=== PATIENT | female | born 1960 | race Caucasian/White ===

== ENCOUNTER → 2024-06-01 16:06 | Outpatient (REF) | payer MEDICARE, SELFPAY | LOC: RAD 16:06 | PROVIDERS: ATTENDING PHYSICIAN Family Medicine; FAMILY PHYSICIAN Student in an Organized Health Care Education/Training Program | DX: R22.31 Localized swelling, mass and lump, right upper limb (principal); R22.2 Localized swelling, mass and lump, trunk | CPT/HCPCS: 71270; Q9967 ==

== ENCOUNTER → 2024-06-04 09:56 | Outpatient (REF) | payer MEDICARE, SELFPAY | LOC: HWRAD 09:56 | PROVIDERS: ATTENDING PHYSICIAN Family Medicine; FAMILY PHYSICIAN Student in an Organized Health Care Education/Training Program | DX: N95.0 Postmenopausal bleeding (principal) | CPT/HCPCS: 76830; 76856 ==

== ENCOUNTER → 2024-06-15 10:06 | Outpatient (REF) | payer MEDICARE, SELFPAY | LOC: HWWDC 10:06 | PROVIDERS: ATTENDING PHYSICIAN Family Medicine | DX: Z12.31 Encounter for screening mammogram for malignant neoplasm of breast (principal); Z78.0 Asymptomatic menopausal state | CPT/HCPCS: 77063; 77067; 77080 ==

== ENCOUNTER → 2024-10-29 10:36 | Outpatient (REF) | payer MEDICARE, SELFPAY ==
[2024-10-29 11:33] LABS: % Basophils 1.1 % (0-2); % Eosinophils 1.4 % (0-6); % Immature Granulocytes 0.4 % (0-0.5); % Lymphocytes 15.9 % (20.5-51.1); % Monocytes 9.7 % (1.7-9.3); % Neutrophils 71.5 % (42.2-75.2); Absolute Basophils 0.1 10^3/uL (0-0.2); Absolute Eosinophils 0.1 10^3/uL (0-0.7); Absolute Lymphocytes 1.2 10^3/uL (1.2-3.4); Absolute Monocytes 0.7 10^3/uL (0.1-0.6); Absolute Neutrophils 5.2 10^3/uL (1.4-6.5); Hematocrit 35.5 % (37.0-47.0); Hemoglobin 12.5 g/dL (12.0-16.0); Mean Corp Hgb Conc. 35.2 g/dL (33.0-37.0); Mean Corpuscular Hgb 31.3 pg (27.0-31.0); Mean Corpuscular Volume 88.8 fL (81.0-99.0); Mean Platelet Volume 8.8 fL (7.4-10.4); Nucleated Red Blood Cells % 0 %; Platelet Count 306 10^3/uL (130-400); Red Cell Dist. Width 11.6 % (11.5-14.5); White Blood Cell Count 7.3 10^3/uL (4.8-10.8)
[2024-10-29 13:45] LABS: Blood Urea Nitrogen 19 mg/dl (7-17); Calcium 10.5 mg/dl (8.4-10.2); Carbon Dioxide 27 mmol/L (22-30); Chloride 96 mmol/L (98-107); Glucose 92 mg/dl (70-99); Sodium 134 mmol/L (135-145); eGFR > 60.00
== END ==
LOC: REG 10:36
PROVIDERS: ATTENDING PHYSICIAN Orthopaedic Surgery Hand Surgery; FAMILY PHYSICIAN Student in an Organized Health Care Education/Training Program
DX: Z01.818 Encounter for other preprocedural examination (principal)
CPT/HCPCS: 36415; 80048; 85025; 93005

== ENCOUNTER 2025-05-31 09:29 | Inpatient (IN) | payer MEDICARE, SELFPAY ==
[2025-05-30 20:17] VITALS: BP 156/92
[2025-05-30] MEDS: TYLENOL 650 MG PO (20:27)
[2025-05-30 20:45] LABS: Hematocrit 29.9 % (37.0-47.0); Hemoglobin 10.9 g/dL (12.0-16.0); Mean Corp Hgb Conc. 36.5 g/dL (33.0-37.0); Mean Corpuscular Volume 83.8 fL (81.0-99.0); Nucleated Red Blood Cells % 0 %; Platelet Count 206 10^3/uL (130-400); Red Cell Dist. Width 11.1 % (11.5-14.5)
[2025-05-30 20:59] LABS: COVID-19 Antigen Negative (Negative)
[2025-05-30 21:01] LABS: ALT (SGPT) 29 U/L (0-35); AST (SGOT) 33 U/L (14-36); Albumin 4.6 g/dl (3.5-5.0); Alkaline Phosphatase 155 U/L (38-126); Blood Urea Nitrogen 32 mg/dl (7-17); Calcium 9.7 mg/dl (8.4-10.2); Carbon Dioxide 19 mmol/L (22-30); Chloride 101 mmol/L (98-107); Glucose 157 mg/dl (70-99); Potassium 3.8 mmol/L (3.5-5.1); Sodium 131 mmol/L (135-145); Total Protein 7.4 g/dl (6.3-8.2); eGFR 49.92
--- NOTE | 2025-05-30 23:20 | ED.GENMED ---
History of Present Illness
<Marya Rosenthal PA-C - Last Filed: 05/31/25 06:53>
General
Chief Complaint: Cold/Flu/URI Symptoms
Source: patient
Exam Limitations: none
Time Seen by Provider: 05/30/25 23:05
Nursing documentation reviewed up to this point in time: agreed with
History of Present Illness
History of Present Illness:
64-year-old female with a past medical history of mitral valve prolapse, IBS, hypertension, presents to the ER today with concerns of a week of flulike symptoms and a fever. She reports that she has had a fever daily for a week intermittently but
not getting better. The symptoms are associated with intermittent diarrhea and vomiting. She also has bodyaches and headache. She reports that the headache usually improves after fever breaks. She been taking Tylenol and Motrin for the fever.
She called EMS today because her was not able to take her to the emergency department because he had to look after her son. She reports that her started develop similar symptoms the past few days. She denies neck pain. She denies
back pain at present. She follows with a primary care provider but does not follow with a rehab care assistant. Her medications are buspirone, losartan, dicyclomine, Nexium, and a probiotic. She denies any blood in her stools or dark tarry stools.
Past History
<Marya Rosenthal PA-C - Last Filed: 05/31/25 06:53>
Past History
ED Past Medical History: Other (N/A)
ED Past Surgical History: Appendectomy and Gynecological
Social History
Tobacco: Non-smoker
Personal:
Living: with family
Employment: Not employed
Review of Systems
<Marya Rosenthal PA-C - Last Filed: 05/31/25 06:53>
Review of Systems
All Other Systems: ROS reviewed and negative except as documented in HPI and ROS
Phy Exam
<ARELI Arnold Last Filed: 05/31/25 06:53>
Physical Exam
Physical Exam:
General: Patient is well appearing and in no acute distress; non-toxic
Skin: Warm and dry, no rashes or lesions
Head: Normocephalic, atraumatic
Eyes: Sclera non-icteric. EOMs intact.
Cardiac: Regular rate and rhythm, systolic murmur noted
Peripheral Vascular: No lower extremity swelling or edema
Pulm: Normal respiratory effort, no wheezes, rales, rhonchi
Abdomen: No abdominal tenderness to palpation
Neuro: CN II-XII intact, no focal neurologic deficits. Full ROM of cervical spine. No meningismus.
Psychiatric: Appropriate mood and affect.
Sepsis
<Marya Rosenthal PA-C - Last Filed: 05/31/25 06:53>
Sepsis Screening
Sepsis Assessment: Sepsis Ruled Out
Sepsis Screen
Sepsis Screen: Sepsis Ruled Out
Date: 05/31/25
Time: 06:53
<Lilian Dickinson DO - Last Filed: 06/06/25 08:27>
Sepsis Screen
Sepsis Screen: Sepsis Ruled Out
Date: 06/06/25
Time: 08:24
<Kodak Bradshaw DO - Last Filed: 05/31/25 07:46>
Sepsis Screen
Sepsis Screen: Sepsis Ruled Out
Date: 05/31/25
Time: 07:46
Course
<Marya Rosenthal PA-C - Last Filed: 05/31/25 06:53>
Orders/Labs/Results
Orders:
Orders
05/30/25 20:26
Acetaminophen [Tylenol] 650 mg .ROUTE .STK-MED ONE
05/30/25 20:27
Acetaminophen [Tylenol] 650 mg PO NOW STA
05/30/25 20:30
COVID-19 Antigen Urgent
Source: Nasal Swab
Complete Blood Count/With Diff Urgent
Comprehensive Metabolic Panel Urgent
Ferritin Urgent
Comment: ADD ON
Folate Urgent
Comment: ADD ON
Iron Urgent
Comment: ADD ON
LDH Urgent
Comment: ADD ON
Lactic Acid Urgent
Reticulocyte Count Urgent
Comment: ADD ON
Total Iron Binding Urgent
Comment: ADD ON
Vitamin B12 Urgent
Comment: ADD ON
Blood Culture Urgent
JAREK Source: Blood/Venous
Specimen Description:
Influenza A+B Rapid Molecular Urgent
JAREK Source: Nasal Swab
Specimen Description:
05/30/25 23:18
Cardiac Monitoring- Treatment ONCE
0.9% Sodium Chloride 500 ml [Nss] 500 ml IV BOLUS
05/30/25 23:19
Urinalysis Reflex To Culture Urgent
Date Specimen was Collected: 05/31/25
Time Specimen was Collected: 00:28
CR Chest - 2 Views Urgent
Comment:
Reason For Exam: cough, fever
05/30/25 23:20
Ondansetron Injectable [Zofran] 4 mg IV NOW STA
05/31/25 00:21
Metoclopramide [Reglan] 10 mg IV NOW STA
05/31/25 00:22
Acetaminophen [Tylenol] 1,000 mg PO NOW STA
05/31/25 00:41
Urine Microscopic Reflex Cult Urgent
05/31/25 01:32
Ketorolac [Toradol] 15 mg IV NOW STA
05/31/25 01:54
Monotest Urgent
Blood Culture Urgent
JAREK Source: Blood/Venous
Specimen Description:
Respiratory Syncytial Virus Urgent
JAREK Source: Nasal Swab
Specimen Description:
Date Specimen was Collected: 05/31/25
Time Specimen was Collected: 01:45
05/31/25 05:19
Dexamethasone Sod Phosphate [Decadron] 10 mg IV NOW STA
05/31/25 06:35
Lyme PCR, DNA [S] Stat
Meningitis Panel, CSF by PCR Stat
JAREK Source: Csf
Specimen Description:
05/31/25 06:42
CSF Cell Count Urgent
Date Specimen was Collected: 05/31/25
Time Specimen was Collected: 06:40
Spinal Fluid Glucose Urgent
Date Specimen was Collected: 05/31/25
Time Specimen was Collected: 06:41
Spinal Fluid Protein Urgent
Date Specimen was Collected: 05/31/25
Time Specimen was Collected: 06:41
CSF Culture with Gram Stain Urgent
JAREK Source: CSF
Specimen Description:
Date Specimen was Collected: 05/31/25
Time Specimen was Collected: 06:41
05/31/25 07:39
CefTRIAXone [Rocephin] 2,000 mg IV NOW STA
05/31/25 07:47
INFECTIOUS DISEASE CONSULT Routine
Consulting Provider: Shantell Pak
Was physician already notified: Yes
05/31/25 08:[address] [CT Head W/o Iv Contrast] Urgent
Comment:
Reason For Exam: headache
05/31/25 08:15
Vancomycin 1 Gram/200 ml [Vancocin] 1 gram in 200 ml IV NOW
05/31/25 08:22
Sterile Water [Sterile Water For Injection] 10 ml .ROUTE .STK-MED ONE
05/31/25 08:28
Sterile Water [Sterile Water For Injection] 10 ml .ROUTE .STK-MED ONE
05/31/25 08:49
Add On - Microbiology Urgent
Tests Added?: CSF culture
05/31/25 08:54
0.9% Sodium Chloride 1000 ml [Nss] 1,000 ml IV BOLUS
05/31/25 09:00
Flush (0.9% Sodium Chloride) [Flush (Nss)] See Dose Instructions IV PER PROTOCOL
VANCOMYCIN Pharmacy to Dose [VANCOCIN Pharmacy to Dose] 1 each Pharmacy To Prepare [Call Pharmacy To Prepare] 0 ml IV PER PROTOCOL
05/31/25 09:02
Admit/Transfer Patient As Directed
Co-Sign Provider:
Level of Care: Inpatient admission
Assign to:: Medical/Surgical
Physician / Group: Trice
Diagnosis: meningitis/encephalitis
Reason for Hospitalization: meningitis/encephalitis
Expected length of stay greater than two midnights?: Yes
ELOS- Estimated Length of Stay in days: 5
I certify the patient meets the requirements for IP care: Yes
05/31/25 09:03
PRN Pain Medication Management As Directed
May give lesser potent ordered pain med per pt: Yes
preference::
Protocol:: Medication orders for pain may be administered in a
manner that supports deferring to patient preference
when the pt is:
- Requesting an ordered lesser potent pain medication.
Least to most potent pain medications are defined
as: acetaminophen < NSAID < tramadol < opioids
(morphine, oxycodone, hydromorphone).
- Requesting a lesser dose of the same medication IF
ORDERED.
- Requesting a less intrusive route of administration
if both routes are prescribed by the provider (PO <
IV).
05/31/25 09:04
Code Status As Directed
Resuscitation Status: Full Code
05/31/25 09:09
Add On- LAB Routine
Tests Added?: iron, TIBC, ferritin, B12, folate, LDH, retics
05/31/25 09:42
0.9% Sodium Chloride 1000 ml [Nss] 1,000 ml IV 80 mls/hr
Acetaminophen [Tylenol] 650 mg PO Q6HPRN PRN
Bisacodyl [Dulcolax] 10 mg RECTAL [id number] PRN
Docusate W/Senna [Senokot-S] 1 tablet PO BIDPRN PRN
Ondansetron Injectable [Zofran] 4 mg IV Q8HPRN PRN
Polyethylene Glycol Powder [Miralax] 17 grams PO DAILYPRN PRN
05/31/25 09:42
Activity As Directed
Activity Level: Out of Bed-Early Mobility
Precautions As Directed
Type of Precautions: Airborne
Vital Signs As Directed
Frequency: Per unit guidelines
DX Deep Vein Thrombosis Video Routine
05/31/25 Lunch
Regular
At Your Request: Full Participation
05/31/25 11:00
Ampicillin 2,000 mg 0.9% Sodium Chloride 100 ml [Nss] 100 ml IV Q6
05/31/25 16:00
Heparin 5,000 units SC Q8
05/31/25 20:00
Buspirone [Buspar] 15 mg PO BID
CefTRIAXone [Rocephin] 2,000 mg IV Q12H
Sterile Water [Sterile Water For Injection] 20 ml IV Q12H
06/01/25 09:13
Complete Blood Count/With Diff IN AM
Comprehensive Metabolic Panel IN AM
Blood Culture Q30M
JAREK Source: Blood/Venous
Specimen Description:
06/01/25 10:24
Blood Culture Q30M
JAREK Source: Blood/Venous
Specimen Description:
Abnormal Lab Results
05/30/25 05/31/25 05/31/25
20:30 00:41 01:54
RBC 3.57 L 10^6/uL
(4.20-5.40)
Hgb 10.9 L g/dL
(12.0-16.0)
Hct 29.9 L %
(37.0-47.0)
RDW 11.1 L %
(11.5-14.5)
Absolute Neuts (auto) 8.1 H 10^3/uL
(1.4-6.5)
Absolute Lymphs (auto) 0.6 L 10^3/uL
(1.2-3.4)
Neutrophils % 86.6 H %
(42.2-75.2)
Lymphocytes % 6.0 L %
(20.5-51.1)
Sodium 131 L mmol/L
(135-145)
Carbon Dioxide 19 L mmol/L
(22-30)
BUN 32 H mg/dl
(7-17)
Creatinine 1.2 H mg/dL
(0.6-1.0)
Glucose 157 H mg/dl
(70-99)
Lactic Acid 0.6 L mmol/L
(0.7-2.0)
Iron 26 L ug/dl
(37-170)
% Saturation 8 L %
(20-50)
Alkaline Phosphatase 155 H U/L
(38-126)
Lactate Dehydrogenase 270 H U/L
(120-246)
Urine Ketones 2+ A
(Negative)
Ur Occult Blood Reflex 1+ A
(Negative)
Urine Bacteria (Reflex) Few A
(Negative)
Urine Albumin (Reflex) 1+ A
(Neg - Trace)
CSF WBC
CSF Total Protein
Monoscreen Positive A
(Negative)
05/31/25
06:42
RBC
Hgb
Hct
RDW
Absolute Neuts (auto)
Absolute Lymphs (auto)
Neutrophils %
Lymphocytes %
Sodium
Carbon Dioxide
BUN
Creatinine
Glucose
Lactic Acid
Iron
% Saturation
Alkaline Phosphatase
Lactate Dehydrogenase
Urine Ketones
Ur Occult Blood Reflex
Urine Bacteria (Reflex)
Urine Albumin (Reflex)
CSF WBC 6854 H* mm^3
(0-5)
CSF Total Protein > 600 H mg/dl
(12-60)
Monoscreen
05/30/25 20:30
05/30/25 20:30
Vital Signs
Initial and Last Documented VS:
Initial Vital Signs
Temp Pulse Resp BP Pulse Ox
102.6 F H 123 16 156/92 95
05/30/25 20:17 05/30/25 20:17 05/30/25 20:17 05/30/25 20:17 05/30/25 20:17
Last Documented Vital Signs
Temp Pulse Resp BP Pulse Ox
98.6 F 82 12 141/82 99
06/06/25 08:08 06/06/25 08:08 06/06/25 08:08 06/06/25 08:08 06/06/25 08:08
<Lilian Dickinson, DO - Last Filed: 06/06/25 08:27>
Orders/Labs/Results
Orders:
Orders
05/30/25 20:26
Acetaminophen [Tylenol] 650 mg .ROUTE .STK-MED ONE
05/30/25 20:27
Acetaminophen [Tylenol] 650 mg PO NOW STA
05/30/25 20:30
COVID-19 Antigen Urgent
Source: Nasal Swab
Complete Blood Count/With Diff Urgent
Comprehensive Metabolic Panel Urgent
Ferritin Urgent
Comment: ADD ON
Folate Urgent
Comment: ADD ON
Iron Urgent
Comment: ADD ON
LDH Urgent
Comment: ADD ON
Lactic Acid Urgent
Reticulocyte Count Urgent
Comment: ADD ON
Total Iron Binding Urgent
Comment: ADD ON
Vitamin B12 Urgent
Comment: ADD ON
Blood Culture Urgent
JAREK Source: Blood/Venous
Specimen Description:
Influenza A+B Rapid Molecular Urgent
AJREK Source: Nasal Swab
Specimen Description:
05/30/25 23:18
Cardiac Monitoring- Treatment ONCE
0.9% Sodium Chloride 500 ml [Nss] 500 ml IV BOLUS
05/30/25 23:19
Urinalysis Reflex To Culture Urgent
Date Specimen was Collected: 05/31/25
Time Specimen was Collected: 00:28
CR Chest - 2 Views Urgent
Comment:
Reason For Exam: cough, fever
05/30/25 23:20
Ondansetron Injectable [Zofran] 4 mg IV NOW STA
05/31/25 00:21
Metoclopramide [Reglan] 10 mg IV NOW STA
05/31/25 00:22
Acetaminophen [Tylenol] 1,000 mg PO NOW STA
05/31/25 00:41
Urine Microscopic Reflex Cult Urgent
05/31/25 01:32
Ketorolac [Toradol] 15 mg IV NOW STA
05/31/25 01:54
Monotest Urgent
Blood Culture Urgent
JAREK Source: Blood/Venous
Specimen Description:
Respiratory Syncytial Virus Urgent
JAREK Source: Nasal Swab
Specimen Description:
Date Specimen was Collected: 05/31/25
Time Specimen was Collected: 01:45
05/31/25 05:19
Dexamethasone Sod Phosphate [Decadron] 10 mg IV NOW STA
05/31/25 06:35
Lyme PCR, DNA [S] Stat
Meningitis Panel, CSF by PCR Stat
JAREK Source: Csf
Specimen Description:
05/31/25 06:42
CSF Cell Count Urgent
Date Specimen was Collected: 05/31/25
Time Specimen was Collected: 06:40
Spinal Fluid Glucose Urgent
Date Specimen was Collected: 05/31/25
Time Specimen was Collected: 06:41
Spinal Fluid Protein Urgent
Date Specimen was Collected: 05/31/25
Time Specimen was Collected: 06:41
CSF Culture with Gram Stain Urgent
JAREK Source: CSF
Specimen Description:
Date Specimen was Collected: 05/31/25
Time Specimen was Collected: 06:41
05/31/25 07:39
CefTRIAXone [Rocephin] 2,000 mg IV NOW STA
05/31/25 07:47
INFECTIOUS DISEASE CONSULT Routine
Consulting Provider: Shantell Pak
Was physician already notified: Yes
05/31/25 08:[address] [CT Head W/o Iv Contrast] Urgent
Comment:
Reason For Exam: headache
05/31/25 08:15
Vancomycin 1 Gram/200 ml [Vancocin] 1 gram in 200 ml IV NOW
05/31/25 08:22
Sterile Water [Sterile Water For Injection] 10 ml .ROUTE .STK-MED ONE
05/31/25 08:28
Sterile Water [Sterile Water For Injection] 10 ml .ROUTE .STK-MED ONE
05/31/25 08:49
Add On - Microbiology Urgent
Tests Added?: CSF culture
05/31/25 08:54
0.9% Sodium Chloride 1000 ml [Nss] 1,000 ml IV BOLUS
05/31/25 09:00
Flush (0.9% Sodium Chloride) [Flush (Nss)] See Dose Instructions IV PER PROTOCOL
VANCOMYCIN Pharmacy to Dose [VANCOCIN Pharmacy to Dose] 1 each Pharmacy To Prepare [Call Pharmacy To Prepare] 0 ml IV PER PROTOCOL
05/31/25 09:02
Admit/Transfer Patient As Directed
Co-Sign Provider:
Level of Care: Inpatient admission
Assign to:: Medical/Surgical
Physician / Group: Trice
Diagnosis: meningitis/encephalitis
Reason for Hospitalization: meningitis/encephalitis
Expected length of stay greater than two midnights?: Yes
ELOS- Estimated Length of Stay in days: 5
I certify the patient meets the requirements for IP care: Yes
05/31/25 09:03
PRN Pain Medication Management As Directed
May give lesser potent ordered pain med per pt: Yes
preference::
Protocol:: Medication orders for pain may be administered in a
manner that supports deferring to patient preference
when the pt is:
- Requesting an ordered lesser potent pain medication.
Least to most potent pain medications are defined
as: acetaminophen < NSAID < tramadol < opioids
(morphine, oxycodone, hydromorphone).
- Requesting a lesser dose of the same medication IF
ORDERED.
- Requesting a less intrusive route of administration
if both routes are prescribed by the provider (PO <
IV).
05/31/25 09:04
Code Status As Directed
Resuscitation Status: Full Code
05/31/25 09:09
Add On- LAB Routine
Tests Added?: iron, TIBC, ferritin, B12, folate, LDH, retics
05/31/25 09:42
0.9% Sodium Chloride 1000 ml [Nss] 1,000 ml IV 80 mls/hr
Acetaminophen [Tylenol] 650 mg PO Q6HPRN PRN
Bisacodyl [Dulcolax] 10 mg RECTAL [id number] PRN
Docusate W/Senna [Senokot-S] 1 tablet PO BIDPRN PRN
Ondansetron Injectable [Zofran] 4 mg IV Q8HPRN PRN
Polyethylene Glycol Powder [Miralax] 17 grams PO DAILYPRN PRN
05/31/25 09:42
Activity As Directed
Activity Level: Out of Bed-Early Mobility
Precautions As Directed
Type of Precautions: Airborne
Vital Signs As Directed
Frequency: Per unit guidelines
DX Deep Vein Thrombosis Video Routine
05/31/25 Lunch
Regular
At Your Request: Full Participation
05/31/25 11:00
Ampicillin 2,000 mg 0.9% Sodium Chloride 100 ml [Nss] 100 ml IV Q6
05/31/25 16:00
Heparin 5,000 units SC Q8
05/31/25 20:00
Buspirone [Buspar] 15 mg PO BID
CefTRIAXone [Rocephin] 2,000 mg IV Q12H
Sterile Water [Sterile Water For Injection] 20 ml IV Q12H
06/01/25 09:13
Complete Blood Count/With Diff IN AM
Comprehensive Metabolic Panel IN AM
Blood Culture Q30M
JAREK Source: Blood/Venous
Specimen Description:
06/01/25 10:24
Blood Culture Q30M
JAREK Source: Blood/Venous
Specimen Description:
Abnormal Lab Results
05/30/25 05/31/25 05/31/25
20:30 00:41 01:54
RBC 3.57 L 10^6/uL
(4.20-5.40)
Hgb 10.9 L g/dL
(12.0-16.0)
Hct 29.9 L %
(37.0-47.0)
RDW 11.1 L %
(11.5-14.5)
Absolute Neuts (auto) 8.1 H 10^3/uL
(1.4-6.5)
Absolute Lymphs (auto) 0.6 L 10^3/uL
(1.2-3.4)
Neutrophils % 86.6 H %
(42.2-75.2)
Lymphocytes % 6.0 L %
(20.5-51.1)
Sodium 131 L mmol/L
(135-145)
Carbon Dioxide 19 L mmol/L
(22-30)
BUN 32 H mg/dl
(7-17)
Creatinine 1.2 H mg/dL
(0.6-1.0)
Glucose 157 H mg/dl
(70-99)
Lactic Acid 0.6 L mmol/L
(0.7-2.0)
Iron 26 L ug/dl
(37-170)
% Saturation 8 L %
(20-50)
Alkaline Phosphatase 155 H U/L
(38-126)
Lactate Dehydrogenase 270 H U/L
(120-246)
Urine Ketones 2+ A
(Negative)
Ur Occult Blood Reflex 1+ A
(Negative)
Urine Bacteria (Reflex) Few A
(Negative)
Urine Albumin (Reflex) 1+ A
(Neg - Trace)
CSF WBC
CSF Total Protein
Monoscreen Positive A
(Negative)
05/31/25
06:42
RBC
Hgb
Hct
RDW
Absolute Neuts (auto)
Absolute Lymphs (auto)
Neutrophils %
Lymphocytes %
Sodium
Carbon Dioxide
BUN
Creatinine
Glucose
Lactic Acid
Iron
% Saturation
Alkaline Phosphatase
Lactate Dehydrogenase
Urine Ketones
Ur Occult Blood Reflex
Urine Bacteria (Reflex)
Urine Albumin (Reflex)
CSF WBC 6854 H* mm^3
(0-5)
CSF Total Protein > 600 H mg/dl
(12-60)
Monoscreen
05/30/25 20:30
05/30/25 20:30
Vital Signs
Initial and Last Documented VS:
Initial Vital Signs
Temp Pulse Resp BP Pulse Ox
102.6 F H 123 16 156/92 95
05/30/25 20:17 05/30/25 20:17 05/30/25 20:17 05/30/25 20:17 05/30/25 20:17
Last Documented Vital Signs
Temp Pulse Resp BP Pulse Ox
98.6 F 82 12 141/82 99
06/06/25 08:08 06/06/25 08:08 06/06/25 08:08 06/06/25 08:08 06/06/25 08:08
<Kodak Bradshaw, DO - Last Filed: 05/31/25 07:46>
Orders/Labs/Results
Orders:
Orders
05/30/25 20:26
Acetaminophen [Tylenol] 650 mg .ROUTE .STK-MED ONE
05/30/25 20:27
Acetaminophen [Tylenol] 650 mg PO NOW STA
05/30/25 20:30
COVID-19 Antigen Urgent
Source: Nasal Swab
Complete Blood Count/With Diff Urgent
Comprehensive Metabolic Panel Urgent
Ferritin Urgent
Comment: ADD ON
Folate Urgent
Comment: ADD ON
Iron Urgent
Comment: ADD ON
LDH Urgent
Comment: ADD ON
Lactic Acid Urgent
Reticulocyte Count Urgent
Comment: ADD ON
Total Iron Binding Urgent
Comment: ADD ON
Vitamin B12 Urgent
Comment: ADD ON
Blood Culture Urgent
JAREK Source: Blood/Venous
Specimen Description:
Influenza A+B Rapid Molecular Urgent
JAREK Source: Nasal Swab
Specimen Description:
05/30/25 23:18
Cardiac Monitoring- Treatment ONCE
0.9% Sodium Chloride 500 ml [Nss] 500 ml IV BOLUS
05/30/25 23:19
Urinalysis Reflex To Culture Urgent
Date Specimen was Collected: 05/31/25
Time Specimen was Collected: 00:28
CR Chest - 2 Views Urgent
Comment:
Reason For Exam: cough, fever
05/30/25 23:20
Ondansetron Injectable [Zofran] 4 mg IV NOW STA
05/31/25 00:21
Metoclopramide [Reglan] 10 mg IV NOW STA
05/31/25 00:22
Acetaminophen [Tylenol] 1,000 mg PO NOW STA
05/31/25 00:41
Urine Microscopic Reflex Cult Urgent
05/31/25 01:32
Ketorolac [Toradol] 15 mg IV NOW STA
05/31/25 01:54
Monotest Urgent
Blood Culture Urgent
JAREK Source: Blood/Venous
Specimen Description:
Respiratory Syncytial Virus Urgent
JAREK Source: Nasal Swab
Specimen Description:
Date Specimen was Collected: 05/31/25
Time Specimen was Collected: 01:45
05/31/25 05:19
Dexamethasone Sod Phosphate [Decadron] 10 mg IV NOW STA
05/31/25 06:35
Lyme PCR, DNA [S] Stat
Meningitis Panel, CSF by PCR Stat
JAREK Source: Csf
Specimen Description:
05/31/25 06:42
CSF Cell Count Urgent
Date Specimen was Collected: 05/31/25
Time Specimen was Collected: 06:40
Spinal Fluid Glucose Urgent
Date Specimen was Collected: 05/31/25
Time Specimen was Collected: 06:41
Spinal Fluid Protein Urgent
Date Specimen was Collected: 05/31/25
Time Specimen was Collected: 06:41
CSF Culture with Gram Stain Urgent
JAREK Source: CSF
Specimen Description:
Date Specimen was Collected: 05/31/25
Time Specimen was Collected: 06:41
05/31/25 07:39
CefTRIAXone [Rocephin] 2,000 mg IV NOW STA
05/31/25 07:47
INFECTIOUS DISEASE CONSULT Routine
Consulting Provider: Shantell Pak
Was physician already notified: Yes
05/31/25 08:[address] [CT Head W/o Iv Contrast] Urgent
Comment:
Reason For Exam: headache
05/31/25 08:15
Vancomycin 1 Gram/200 ml [Vancocin] 1 gram in 200 ml IV NOW
05/31/25 08:22
Sterile Water [Sterile Water For Injection] 10 ml .ROUTE .STK-MED ONE
05/31/25 08:28
Sterile Water [Sterile Water For Injection] 10 ml .ROUTE .STK-MED ONE
05/31/25 08:49
Add On - Microbiology Urgent
Tests Added?: CSF culture
05/31/25 08:54
0.9% Sodium Chloride 1000 ml [Nss] 1,000 ml IV BOLUS
05/31/25 09:00
Flush (0.9% Sodium Chloride) [Flush (Nss)] See Dose Instructions IV PER PROTOCOL
VANCOMYCIN Pharmacy to Dose [VANCOCIN Pharmacy to Dose] 1 each Pharmacy To Prepare [Call Pharmacy To Prepare] 0 ml IV PER PROTOCOL
05/31/25 09:02
Admit/Transfer Patient As Directed
Co-Sign Provider:
Level of Care: Inpatient admission
Assign to:: Medical/Surgical
Physician / Group: Trice
Diagnosis: meningitis/encephalitis
Reason for Hospitalization: meningitis/encephalitis
Expected length of stay greater than two midnights?: Yes
ELOS- Estimated Length of Stay in days: 5
I certify the patient meets the requirements for IP care: Yes
05/31/25 09:03
PRN Pain Medication Management As Directed
May give lesser potent ordered pain med per pt: Yes
preference::
Protocol:: Medication orders for pain may be administered in a
manner that supports deferring to patient preference
when the pt is:
- Requesting an ordered lesser potent pain medication.
Least to most potent pain medications are defined
as: acetaminophen < NSAID < tramadol < opioids
(morphine, oxycodone, hydromorphone).
- Requesting a lesser dose of the same medication IF
ORDERED.
- Requesting a less intrusive route of administration
if both routes are prescribed by the provider (PO <
IV).
05/31/25 09:04
Code Status As Directed
Resuscitation Status: Full Code
05/31/25 09:09
Add On- LAB Routine
Tests Added?: iron, TIBC, ferritin, B12, folate, LDH, retics
05/31/25 09:42
0.9% Sodium Chloride 1000 ml [Nss] 1,000 ml IV 80 mls/hr
Acetaminophen [Tylenol] 650 mg PO Q6HPRN PRN
Bisacodyl [Dulcolax] 10 mg RECTAL [id number] PRN
Docusate W/Senna [Senokot-S] 1 tablet PO BIDPRN PRN
Ondansetron Injectable [Zofran] 4 mg IV Q8HPRN PRN
Polyethylene Glycol Powder [Miralax] 17 grams PO DAILYPRN PRN
05/31/25 09:42
Activity As Directed
Activity Level: Out of Bed-Early Mobility
Precautions As Directed
Type of Precautions: Airborne
Vital Signs As Directed
Frequency: Per unit guidelines
DX Deep Vein Thrombosis Video Routine
05/31/25 Lunch
Regular
At Your Request: Full Participation
05/31/25 11:00
Ampicillin 2,000 mg 0.9% Sodium Chloride 100 ml [Nss] 100 ml IV Q6
05/31/25 16:00
Heparin 5,000 units SC Q8
05/31/25 20:00
Buspirone [Buspar] 15 mg PO BID
CefTRIAXone [Rocephin] 2,000 mg IV Q12H
Sterile Water [Sterile Water For Injection] 20 ml IV Q12H
06/01/25 09:13
Complete Blood Count/With Diff IN AM
Comprehensive Metabolic Panel IN AM
Blood Culture Q30M
JAREK Source: Blood/Venous
Specimen Description:
06/01/25 10:24
Blood Culture Q30M
JAREK Source: Blood/Venous
Specimen Description:
Abnormal Lab Results
05/30/25 05/31/25 05/31/25
20:30 00:41 01:54
RBC 3.57 L 10^6/uL
(4.20-5.40)
Hgb 10.9 L g/dL
(12.0-16.0)
Hct 29.9 L %
(37.0-47.0)
RDW 11.1 L %
(11.5-14.5)
Absolute Neuts (auto) 8.1 H 10^3/uL
(1.4-6.5)
Absolute Lymphs (auto) 0.6 L 10^3/uL
(1.2-3.4)
Neutrophils % 86.6 H %
(42.2-75.2)
Lymphocytes % 6.0 L %
(20.5-51.1)
Sodium 131 L mmol/L
(135-145)
Carbon Dioxide 19 L mmol/L
(22-30)
BUN 32 H mg/dl
(7-17)
Creatinine 1.2 H mg/dL
(0.6-1.0)
Glucose 157 H mg/dl
(70-99)
Lactic Acid 0.6 L mmol/L
(0.7-2.0)
Iron 26 L ug/dl
(37-170)
% Saturation 8 L %
(20-50)
Alkaline Phosphatase 155 H U/L
(38-126)
Lactate Dehydrogenase 270 H U/L
(120-246)
Urine Ketones 2+ A
(Negative)
Ur Occult Blood Reflex 1+ A
(Negative)
Urine Bacteria (Reflex) Few A
(Negative)
Urine Albumin (Reflex) 1+ A
(Neg - Trace)
CSF WBC
CSF Total Protein
Monoscreen Positive A
(Negative)
05/31/25
06:42
RBC
Hgb
Hct
RDW
Absolute Neuts (auto)
Absolute Lymphs (auto)
Neutrophils %
Lymphocytes %
Sodium
Carbon Dioxide
BUN
Creatinine
Glucose
Lactic Acid
Iron
% Saturation
Alkaline Phosphatase
Lactate Dehydrogenase
Urine Ketones
Ur Occult Blood Reflex
Urine Bacteria (Reflex)
Urine Albumin (Reflex)
CSF WBC 6854 H* mm^3
(0-5)
CSF Total Protein > 600 H mg/dl
(12-60)
Monoscreen
05/30/25 20:30
05/30/25 20:30
Vital Signs
Initial and Last Documented VS:
Initial Vital Signs
Temp Pulse Resp BP Pulse Ox
102.6 F H 123 16 156/92 95
05/30/25 20:17 05/30/25 20:17 05/30/25 20:17 05/30/25 20:17 05/30/25 20:17
Last Documented Vital Signs
Temp Pulse Resp BP Pulse Ox
98.6 F 82 12 141/82 99
06/06/25 08:08 06/06/25 08:08 06/06/25 08:08 06/06/25 08:08 06/06/25 08:08
Procedures
<Marya Rosenthal PA-C - Last Filed: 05/31/25 06:53>
Lumbar Puncture
Indication for procedure:: Intractable headache, fever
Procedure completed by: Marya Rosenthal PA-C
Consent form signed: Yes
If no, reason: Emergency procedure
Anesthesia/sedation: 1% Lidocaine with Epi
Preparation: cleaned with Betadine
Position: sitting
Needle Size: 18 gauge
Needle Type: Lumbar Needle
Number of attempts: 1
Dressing applied to puncture site: bandaid
Complications: none
<Marya Rosenthal PA-C - Last Filed: 05/31/25 06:53>
MDM/Problems Addressed
Differential Diagnosis Includes:
ddx include influenza, pneumonia, UTI, viral syndrome, gastroenteritis, meningitis
MDM/Problems Addressed:
64-year-old female with a past medical history of mitral valve prolapse, IBS, hypertension, presents to the ER today with concerns of a week of flulike symptoms and a fever. She reports that she has had a fever daily for a week intermittently but
not getting better. She thought she had the flu. On physical exam she appears uncomfortable secondary to headache and body aches. She feels like that at home, her headache decreased with fever control but states that recently has become more
persistent. Physical exam her lungs are clear and she has no abdominal tenderness. She has no neurologic deficit. She did test positive for mononucleosis which would explain her fever and symptoms. Initially, plan to discharge patient with
conservative management and close follow-up with PCP. Patient states that she could not get a ride home till the morning so the decision was made to observe her for multiple more hours until her could pick her up.
During this time of observation, patient complained of persistent headache with minimal improvement. She also complained of neck pain and photophobia. Decision was made to perform lumbar puncture which I performed under supervision of ED
attending. Discussed risks of procedure including infection, etc. Consent form signed. Lumbar puncture performed successfully with slightly cloudy fluid. Will hold off on antibiotics at this time. Patient referred for admission.
Chronic conditions affecting care:
Hypertension, IBS, MVP
<Marya Rosenthal PA-C - Last Filed: 05/31/25 06:53>
*Pulse Oximetry
SaO2: 95
Oxygen Mode of Delivery: Room air
Patient hypoxic: no
*Critical Care Note
Total Time (30-74mins, 75-104mins- exclusive of procedures): Not Applicable
Data Reviewed
Review of Other/Old Records Reveals: Records (Reviewed pulm note from 06/07/2024 patient seen for pulmonary nodule and had follow-up done)
Source: patient and records
<Kodak Bradshaw DO - Last Filed: 05/31/25 07:46>
*Critical Care Note
Total Time (30-74mins, 75-104mins- exclusive of procedures): 32
<Marya Rosenthal PA-C - Last Filed: 05/31/25 06:53>
Patient Management
Escalation/DeEscalation of care consider admission/obs:
Admission indicated
<Marya Rosenthal PA-C - Last Filed: 05/31/25 06:53>
Update Note
Update Note:
Reassessment, patient notes that
<Kodak Bradshaw DO - Last Filed: 05/31/25 07:46>
Update Note
Update Note:
6 AM ER attending --- patient admitted status post LP intractable headache
7:45 AM reevaluation patient feeling better she states, normal mental status CSF noted will keep in respiratory isolation, Rocephin and vancomycin ordered, infectious disease has been consulted patient updated
ED Attending Note
<Marya Rosenthal PA-C - Last Filed: 05/31/25 06:53>
-
Portions of this chart may have been created with voice recognition software.� Occasional wrong word or��sound alike� substitutions may have occurred due to the inherent limitations of voice recognition software.
<Lilian Dickinson DO - Last Filed: 06/06/25 08:27>
ED Attending Note
Patient seen and examined by attending physician: Yes
I performed the substantive portion of visit, reviewed & personally made and approve the management plan that is documented in note by myself or EARNESTINE.: Yes
I performed a history and physical exam of patient and discussed management with resident, I reviewed resident's note and agree with documented findings and plan of care.: Yes
ED Attending Note:
64-year-old female with history of hypertension presenting for fever for the past week. Also notes body aches, nausea, vomiting, headache. Denies known sick contacts. Denies any sore throat. Notes mild cough. Denies chest pain or difficulty
breathing. Denies abdominal pain. Denies any neck stiffness. Vital signs on arrival significant for fever.
On exam, patient is resting comfortably, no acute distress, nontoxic. No present signs on physical exam concerning for acute bacterial source. Patient without meningeal signs, no focal neurologic deficits, lungs clear to auscultation, abdomen soft
and nondistended/nontender. No systemic rash. Ultimately suspect viral syndrome. Labs obtained prior to my assessment, unremarkable, mild JANUSZ. COVID and flu swabs are negative. Patient administered medications for her headache and fever. Will
reassess and add Monospot given duration of symptoms.
03:00 - Patient's Monospot test is positive, which is consistent with myriad of symptoms. At this time feel stable for discharge with continued supportive therapy, with vital signs remaining stable. Patient notes that she cannot get a ride until
the morning, so will continue to keep comfortable while in the emergency department and reassess.
05:20 -on reassessment, patient had noted no improvement of her headache, remains very symptomatic despite medications. Viral meningitis/encephalitis is a consideration. For this reason, discussion had with patient regarding ultimate diagnosis
with lumbar puncture. Patient consented for procedure.
06:30 - procedure was completed without incident. Fluid slightly cloudy in appearance. Will plan for antibiotics with now present concern for bacterial source. Cultures and meningitis panel sent. At this time, plan for admission given continued
symptoms and intractable headache, abnormal appearing CSF. Decadron administered
Discharge Plan
Departure
Patient Disposition: Admit
Date of Disposition: 05/31/25
Time of Disposition: 06:22
Admit to: Med/Surg
Presentation/result/management discussed w/ accepting MD/DO: Hospitalist
Patient with high blood pressure during this ER visit?: No
Condition: Good
Covid-19: Not Applicable
Discharge Problem:
Intractable headache, Infectious mononucleosis, Meningitis, Sepsis
Interventions
Interventions:
*Risk Screen - Suicide Last Done: 05/30/25 20:19
*General Assessment Last Done: 05/30/25 23:47
*Neglect/Abuse Screening Last Done: 05/30/25 20:19
*ED COVID-19 Vaccine History Last Done: 05/30/25 23:47
*ED Influenza Vaccine History Last Done: 05/30/25 23:47
[facility] Risk Assessment Tool Last Done: 05/30/25 23:47
*Nursing Disposition Last Done: 05/31/25 13:50
ED- Pulmonary Assessment Last Done: 05/31/25 08:13
Discharge Date and Time
Discharge Date/Time: 05/31/25 13:51
[2025-05-30] MEDS: NSS 500 IV (23:40)
[2025-05-30] MEDS: ZOFRAN 4 MG IV (23:40)
[2025-05-30 23:45] VITALS: BP 134/75
[2025-05-31] VITALS (14 sets, daily range): BP systolic 106–141; BP diastolic 54–77; BMI 22.5
[2025-05-31] MEDS: TYLENOL 1000 MG PO (00:33)
[2025-05-31] MEDS: REGLAN 10 MG IV (00:34)
[2025-05-31 00:50] LABS: Urine Character Clear (Clear)
[2025-05-31 01:05] LABS: Urine Red Blood Cell 0-2 /HPF (0-2); Urine Urothelial Cell 0-2 /LPF (FEW)
[2025-05-31 01:06] LABS: Urine White Cell 0-2 /HPF (0-5)
[2025-05-31] MEDS: TORADOL 15 MG IV (01:59)
[2025-05-31] MEDS: DECADRON 10 MG IV (05:38)
[2025-05-31 07:31] LABS: CSF Color Xanthochromic
[2025-05-31 07:35] LABS: Red Cell Count/CSF 250 mm^3
[2025-05-31 07:36] LABS: White Cell Count/CSF 6854 mm^3 (0-5)
[2025-05-31 08:12] LABS: Spinal Fluid Granulocytes 89 %; Spinal Fluid Lymphocytes 7 %; Spinal Fluid Macrophages 4 %
[2025-05-31] MEDS: ROCEPHIN 2000 MG IV ×2 (08:36→19:55)
[2025-05-31] MEDS: VANCOCIN 200 IV (08:37)
--- NOTE | 2025-05-31 08:49 | CON.ID ---
Consultation
-
Date/Time Consultation Requested: May 31, 2025729
Date/Time Consultation Performed: May 31, 2025 0850
Requesting Provider: Dr. Kodak Bradshaw
Performing Provider: Dr. Shantell Pak
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
Chief Complaint / Past History
Chief Complaint
Fever and headaches
History of Present Illness
History obtained from the patient as well as from her at bedside. She is a 64-year-old female with history of migraine headaches, depression, mitral valve prolapse who presented to the ED last night due to persistent headache and fever.
Patient reports symptoms started last week on Friday or Friday with malaise, body aches, headaches, and fever. She complains of neck stiffness. Positive photophobia. No sinus congestion. No rhinorrhea. No sore throat. No cough or shortness of
breath. No chest pain. Positive intermittent nausea and diarrhea. No abdominal pain. No urine symptoms. No chest pain. No rash. She has been taking Advil for the daily fevers. She had mild improvement for 2 days but then recurred. Headaches
different from her migraine headaches. She denies ill contacts. Her and son are fine. She is retired. She is up-to-date with her pneumococcal vaccine. No tobacco history. In ED, temperature 102.6, chest x-ray negative, CSF 6854 white
blood cells, 89% polys, low glucose, protein more than 600. Meningitis panel negative. Blood culture 1 out of 2 GPC. Monospot positive. She received vancomycin and ceftriaxone. She is en route for CT of the head.
Past History
Additional Past Medical History:
Migraines
Anemia
Depression
Mitral valve prolapse
GERD
IBS
Easy bruising/bleeding disorder
Additional Past Surgical History:
Appendectomy
Uterine ablation
R shoulder arthroscopic surgery
Allergy History:
No Known Allergies Allergy (Unverified 01/10/23 13:55)
Medications Reviewed: Yes
Current Antibiotics:
Ceftriaxone 2g
Vancomycin
Dexamethasone
Social History
Tobacco: Non-Smoker
Alcohol: None
Drug: None
Personal:
Living: With Family
Employment: Retired
Family History
Family History: Not Pertinent
Review of Systems
Review of Systems
General: Fever, Chills and Change in Appetite
HEENT: Stiff Neck and Headache; Negative Sinus Problems or Pharyngitis
Cardiovascular: Negative Chest Pain
Respiratory: Negative Dyspnea or Cough
Gasteroenterology: Nausea and Diarrhea
Genital / Urological: Negative Dysuria or Flank Pain
Endocrine: Weakness
Musculoskeletal: Myalgias
Skin / Hair / Nails: Negative Rash
Neurological: Negative Dizziness
All systems: All other systems were reviewed and were negative
Vital Signs
Temp Pulse Resp BP Pulse Ox
100.7 F H 92 25 121/62 97
05/31/25 02:04 05/31/25 07:30 05/31/25 07:30 05/31/25 07:30 05/31/25 07:30
Selected Entries
05/30/25
20:17
Temp 102.6 F H
Physical Exam
Physical Exam
Constitutional: Acutely Ill
Head: Other (no frontal or maxillary sinus tenderness)
Eyes: No Conjunctival Hemorrhage, Sclera Anicteric and Other (+photophobia)
Cardiovascular: Regular Rate, S1/S2 and Murmur
Pulmonary: Clear; Negative Rales, Rhonchi or Coarse
Gastrointestinal: Soft, Non Tender and Non Distended
Genito-Urinary: Negative CVA Tenderness
Extremities: Negative Edema
Neurological: AO x 3 and Meningeal Signs (+ neck stiffness)
Lab / Diagnostic Study Results
05/30/25 20:30
05/30/25 20:30
Abs Immat Gran (auto) 0.0 10^3/uL (0-0.05) 05/30/25 20:30
Absolute Neuts (auto) 8.1 10^3/uL (1.4-6.5) H 05/30/25 20:30
Absolute Lymphs (auto) 0.6 10^3/uL (1.2-3.4) L 05/30/25 20:30
Absolute Monos (auto) 0.6 10^3/uL (0.1-0.6) 05/30/25 20:30
Absolute Basos (auto) 0.0 10^3/uL (0-0.2) 05/30/25 20:30
Immature Gran % 0.3 % (0-0.5) 05/30/25 20:30
Neutrophils % 86.6 % (42.2-75.2) H 05/30/25 20:30
Lymphocytes % 6.0 % (20.5-51.1) L 05/30/25 20:30
Monocytes % 6.8 % (1.7-9.3) 05/30/25 20:30
Eosinophils % 0.0 % (0-6) 05/30/25 20:30
Basophils % 0.3 % (0-2) 05/30/25 20:30
Lactic Acid 0.6 mmol/L (0.7-2.0) L 05/30/25 20:30
Ur Squamous Epith Cells 6-10 /LPF (Few) 05/31/25 00:41
Microbiology Results
Micro:
05/31/25 06:35 Meningitis/Encephalitis Panel (PCR) - Final
Csf
05/31/25 01:54 Blood Culture - Pending
Blood/Venous
05/30/25 20:30 Blood Culture - Preliminary
Blood/Venous Positive culture in progress
Gram Stain - Preliminary
05/31/25 06:42 Gram Stain - Final
Csf
05/31/25 01:54 Respiratory Syncytial Virus Ag - Final
Nasal Swab Negative for Respiratory Syncytial Virus.
A false negative result may be obtained with a specimen
collected early in the acute phase. If symptoms persist, a
new specimen should be tested.
05/30/25 20:30 Influenza Types A & B (SIMONA) - Final
Nasal Swab Negative for Influenza A & B, NAAT
Negative results must be combined with clinical observations
and patient history.
Nucleic Acid Amplification test (NAAT)performed on the
[employer] platform.
05/30/25 CXR: There is no acute cardiopulmonary disease
Assessment / Plan
# Septic meningitis
# GPC bacteremia (1 of 2 sets)
# Fever
# VEGA, nausea, diarrhea
# JANUSZ
- CSF 6,854 WBC, 250 RBC, 89% polys, glucose ratio <0.40, protein>600 consistent with bacterial meningitis
- Meningitis-encephalitis PCR panel negative
- CSF gram stain no org; cx pending
- DC acyclovir
- Vancomycin IV, ceftriaxone 2g IV q12, dexamethasone to cover Strep pneumo
- Ampicillin 2g IV q6 to cover listeria (diarrhea)
- Droplet precaution till 06/01/25 08:30 am
- Trend temps
- Follow clinically
Care Review
Plan reviewed with: Physician (Dr Bradshaw) and Other (Pharmacist Callum)
--- NOTE | 2025-05-31 09:07 | HPS.HSE ---
Family Physician
-
Family Physician: INTERVIEWE UNKNOWN - PT NOT
Chief Complaint
-
fever, headaches
History of Present Illness
64yo F with PMHx of anxiety came with 1 week of fevers and headaches, started as sharp, stabing pain in R occipital area, now progressed to affect the back of the head. No visual symptoms, paresthesia or weakness reported. No sick contacts, no
recent travel and no animal bytes. PAtient had some GI symptoms at the beginning, now subsided. Also febrile. LP in ED showed granylocytic leukocytosis with elevated protein concerning for bacterial meningitis
Medical History
Past Medical History
Past Medical History: Reports Other
Additional Past Medical History:
as above
Past Surgical History: Reports None
Social History
Tobacco: Non-smoker
Alcohol: None
Drug: None
Family History
Family History: Not pertinent
Allergies / Home Medications
Allergies reflects when Allergies were last updated in [facility] [employer]
Home Medications with original date entered in [facility] [employer])
Allergy/Medication List:
Allergies
Allergy/AdvReac Type Severity Reaction Status Date / Time
No Known Allergies Allergy Unverified 01/10/23 13:55
Home Medications
buspirone 15 mg tablet 15 mg PO BID 05/31/25
Review of Systems
-
History Source: Patient
A 12 point ROS was completed and negative except as noted: Yes
EENT: Reports See HPI
Physical Exam
Vital Signs
Vital Signs
Temp Pulse Resp BP Pulse Ox
100.7 F H 92 25 121/62 97
05/31/25 02:04 05/31/25 07:30 05/31/25 07:30 05/31/25 07:30 05/31/25 07:30
Physical Exam
General: No Apparent Distress, Comfortable and Conversant
HEENT: NormoCephalic, Anicteric and Moist mucous membranes
Respiratory: Clear; No Wheezes or Crackles
Cardiac: S1/S2, Regular Rhythm and Murmur (midsystolic (known to patient))
GI: Soft, Non Tender and Non Distended
Genito-urinary: No costovertebral tender
Musculoskeletal: No Clubbing, No Cyanosis and No Edema
Skin: Warm and Dry; No Rash
Neuro: Awake, Alert, Oriented, AO x 3, No Motor Deficits and Nonfocal/grossly intact
Psych: Calm
Laboratory Results
-
05/30/25 20:30
05/30/25 20:30
Laboratory Results
Lactic Acid 0.6 mmol/L (0.7-2.0) L 05/30/25 20:30
Total Bilirubin 0.8 mg/dl (0.2-1.3) 05/30/25 20:30
AST 33 U/L (14-36) 05/30/25 20:30
ALT 29 U/L (0-35) 05/30/25 20:30
Alkaline Phosphatase 155 U/L (38-126) H 05/30/25 20:30
Data Reviewed
-
Lab Data: Labs Reviewed by me
Impression/Plan
-
A/P:
#Acute meningitis/encephalitis
#Bacteremia
Bcx with GPC
repeat Bcx in 12h
Ceftriaxone 2g q12h, Vancomycin IV, Ampicillin, Acyclovir pending ID consult
PAtient received Dexamethasone in ED, defer additional doses to ID, might need to cont for [address] (not done before LP in ED)
Tylenol
Airborne precautions
Meningitis/Encephalitis PCR panel neg
Lyme pending
ordered Add-on for CSF cultures
Mononucleosis test positive
#Mild alk.phos elevation
US RUQ
follow LFT
no RUQ pain reported
#Mild hyponatremia
IVF
follow BMP
#JANUSZ
most likely dehydration
IVF
follow Cr
#Anemia
Anemia w/u
follow CBC
#Anxiety d/o
cont home meds
DVT ppx hep
Full code
I have spent at least 79min reviewing chart, test rtesults, communication with consultants and providing direct patient care
[2025-05-31 09:36] LABS: Reticulocyte Count 0.8 % (0.4-2.8)
[2025-05-31] MEDS: NSS 1000 IV ×3 (09:52→18:25)
[2025-05-31] MEDS: ZOFRAN 4 MG IV (10:10)
--- NOTE | 2025-05-31 10:10 | PHA.VAN.IN ---
Assessment
- Assessment
Renal Function: Unknown baseline
Concomitant Antimicrobials: ceftriaxone, ampicillin
Plan
- Plan
Initial / Loading Dose: 1000mg - 05/31 08:37
Maintenance Regimen: dosing by level - give additional 500mg x1 today
Monitoring: random 06/01 06
Pharmacokinetics Vancomycin I
- -
Patient Age: 64
Patient Sex: Female
Vancomycin Day #: 1
Indication: Rn New Grad Infection
Requesting Provider: Dr. Pak
Pertinent Antimicrobial Allergies:
NKDA
Height / Weight:
Height 5 ft 2 in
Actual Weight 55.8 kg
- Vital Signs / Lab Results
Temp Pulse Resp BP Pulse Ox
99.4 F 90 16 133/70 100
05/31/25 08:00 05/31/25 09:30 05/31/25 09:30 05/31/25 09:00 05/31/25 09:00
Lab Results - Hematology
05/30/25
20:30
WBC 9.4
Lab Results - Chemistry
05/30/25
20:30
BUN 32 H
Creatinine 1.2 H
Albumin 4.6
05/30/25
20:30
Lactic Acid 0.6 L
Lab Results - Urine
05/31/25
00:41
Urine Nitrite (Reflex) Negative
Leukocyte Esterase Rfl Negative
Urine WBC (Reflex) 0-2
Ur Squamous Epith Cells 6-10
Urine Bacteria (Reflex) Few A
Microbiology Results
05/30/25 20:30 Blood Culture - Preliminary
Blood/Venous Streptococcus species
Gram Stain - Preliminary
05/30/25 20:30 Influenza Types A & B (SIMONA) - Final
Nasal Swab Negative for Influenza A & B, NAAT
Negative results must be combined with clinical observations
and patient history.
Nucleic Acid Amplification test (NAAT)performed on the
[employer] platform.
05/31/25 06:42 Gram Stain - Final
Csf
05/31/25 06:35 Meningitis/Encephalitis Panel (PCR) - Final
Csf
05/31/25 01:54 Respiratory Syncytial Virus Ag - Final
Nasal Swab Negative for Respiratory Syncytial Virus.
A false negative result may be obtained with a specimen
collected early in the acute phase. If symptoms persist, a
new specimen should be tested.
[2025-05-31] MEDS: TYLENOL 650 MG PO ×2 (11:08→18:17)
[2025-05-31] MEDS: MORPHINE SULFATE 2 MG IV ×2 (11:08→15:31)
[2025-05-31 11:14] LABS: Iron 26 ug/dl (37-170)
[2025-05-31 11:24] LABS: Total Iron Binding Capacity 294 ug/dl (265-497)
[2025-05-31 11:49] LABS: Ferritin 220.0 ng/ml (11.1-264.0)
[2025-05-31] MEDS: AMPICILLIN 108 MG IV ×3 (12:04→23:36)
[2025-05-31] MEDS: DECADRON 8.4 MG IV ×3 (12:04→23:36)
[2025-05-31] MEDS: PROTONIX 40 MG PO (12:04)
[2025-05-31 12:20] LABS: Folate 9.8 ng/ml (2.76-20); Vitamin B12 707 pg/ml (239-931)
--- NOTE | 2025-05-31 12:50 | PTCARENOTE ---
pt aaox3. states 8/10 pain in head and neck. pain med given as ordered. temp 101.6 tylenol given. pt able to walk to bathroom. does feel dizzy when standing and have n/v. zofran given. pt at bedside in proper ppe
[2025-05-31 12:55] LABS: LDH 270 U/L (120-246)
[2025-05-31] MEDS: HEPARIN 5000 UNITS SC ×2 (15:33→23:36)
[2025-05-31] MEDS: VANCOCIN HCL 500 MG 100 IV (15:35)
[2025-05-31] MEDS: BUSPAR 15 MG PO (19:55)
[2025-05-31] MEDS: STERILE WATER FOR INJECTION 20 ML IV (19:56)
[2025-06-01] MEDS: TYLENOL 650 MG PO ×3 (01:47→18:32)
[2025-06-01] MEDS: DECADRON 8.4 MG IV ×2 (05:41→13:32)
[2025-06-01] MEDS: AMPICILLIN 108 MG IV ×2 (05:41→13:31)
[2025-06-01 07:15] VITALS: BP 124/66
[2025-06-01] MEDS: STERILE WATER FOR INJECTION 20 ML IV ×2 (08:04→20:07)
[2025-06-01] MEDS: ROCEPHIN 2000 MG IV ×2 (08:04→20:11)
[2025-06-01] MEDS: HEPARIN 5000 UNITS SC ×3 (08:08→23:07)
[2025-06-01] MEDS: BUSPAR 15 MG PO ×2 (08:09→20:04)
[2025-06-01] MEDS: PROTONIX 40 MG PO (08:10)
[2025-06-01] MEDS: NSS 1000 IV (08:24)
[2025-06-01] MEDS: ZOFRAN 4 MG IV (08:24)
[2025-06-01] MEDS: MORPHINE SULFATE 2 MG IV (08:24)
--- NOTE | 2025-06-01 08:44 | PTCARENOTE ---
Received update from Veronica infection resource forester, patient can now be on standard precautions since it has been 24 hrs since initiation of abx. here to visit, update provided.
[2025-06-01 09:42] LABS: Hematocrit 27.1 % (37.0-47.0); Hemoglobin 9.7 g/dL (12.0-16.0); Mean Corp Hgb Conc. 35.8 g/dL (33.0-37.0); Mean Corpuscular Volume 82.6 fL (81.0-99.0); Nucleated Red Blood Cells % 0 %; Platelet Count 294 10^3/uL (130-400); Red Cell Dist. Width 11.5 % (11.5-14.5)
[2025-06-01 09:54] LABS: ALT (SGPT) 24 U/L (0-35); AST (SGOT) 22 U/L (14-36); Albumin 3.7 g/dl (3.5-5.0); Alkaline Phosphatase 131 U/L (38-126); Blood Urea Nitrogen 22 mg/dl (7-17); Calcium 8.9 mg/dl (8.4-10.2); Carbon Dioxide 23 mmol/L (22-30); Chloride 102 mmol/L (98-107); Estimated Creatinine Clearance 55 ml/min; Glucose 176 mg/dl (70-99); Potassium 3.7 mmol/L (3.5-5.1); Sodium 132 mmol/L (135-145); Total Protein 6.2 g/dl (6.3-8.2); eGFR > 60.00
--- NOTE | 2025-06-01 10:20 | PHA.VAN.FU ---
Vancomycin Assessment / Plan
- Assessment
Renal Function: SCR Decreasing
WBC's are: Trending Up
In the past 24 hrs, patient has been: Afebrile
Concomitant Antimicrobials: Ampicillin, Ceftriaxone
- Assessment - Therapeutic Drug Monitoring
Random Level: 5.7 - drawn ~17.5H after previous dose of 500mg
Patient received total of 1500mg yesterday (1g + 500mg)
- Dosing Plan
Dosing by Level: Re-dose today (Vanc 750mg x2 - first dose now then 1999)
Patient had good clearance of divided loading dose - will trial BID dosing today and follow
- Monitoring Plan
Random Level: 06/02 06
- Follow Up
Pharmacy will continue to follow.
Vancomycin Follow UP
- -
Patient Age: 64
Patient Sex: Female
Vancomycin Day #: 2
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
Requesting Provider: Dr. Pak
Pertinent Antimicrobial Allergies:
NKDA
Height / Weight:
Height 5 ft 2 in
Actual Weight 55.8 kg
- Vital Signs / Lab Results
Temp Pulse Resp BP Pulse Ox
97.2 F 68 16 124/66 98
06/01/25 07:15 06/01/25 07:15 06/01/25 07:15 06/01/25 07:15 06/01/25 07:15
Lab Results - Hematology
05/30/25 06/01/25
20:30 09:13
WBC 9.4 15.9 H
Lab Results - Chemistry
05/30/25 06/01/25
20:30 09:13
BUN 32 H 22 H
Creatinine 1.2 H 0.8
Estimated Creat Clear 55
Albumin 4.6 3.7
05/30/25
20:30
Lactic Acid 0.6 L
Microbiology Results
05/30/25 20:30 Blood Culture - Preliminary
Blood/Venous Streptococcus species
Gram Stain - Final
05/31/25 01:54 Blood Culture - Preliminary
Blood/Venous Positive culture in progress
Gram Stain - Preliminary
05/31/25 06:42 CSF Culture - Preliminary
Csf No Growth After 18-24 Hours
Gram Stain - Final
05/30/25 20:30 Influenza Types A & B (SIMONA) - Final
Nasal Swab Negative for Influenza A & B, NAAT
Negative results must be combined with clinical observations
and patient history.
Nucleic Acid Amplification test (NAAT)performed on the
[employer] platform.
05/31/25 06:35 Meningitis/Encephalitis Panel (PCR) - Final
Csf
05/31/25 01:54 Respiratory Syncytial Virus Ag - Final
Nasal Swab Negative for Respiratory Syncytial Virus.
A false negative result may be obtained with a specimen
collected early in the acute phase. If symptoms persist, a
new specimen should be tested.
Therapeutic Drug Monitoring
Random Vancomycin 5.7 ug/ml 06/01/25 09:13
--- NOTE | 2025-06-01 10:28 | W.PN.HOSP.TC ---
Today's Communication/Plan
-
cont Abx
stop IVF
add probiotics
Assessment / Plan
Assessment / Plan
64yo F with PMHx of anxiety, R rotator cuff and biceps tear s/p repair in October 2024 came with 1 week of fevers and headaches, started as sharp, stabing pain in R occipital area, now progressed to affect the back of the head. No visual symptoms,
paresthesia or weakness reported. No sick contacts, no recent travel and no animal bytes. PAtient had some GI symptoms at the beginning, now subsided. Also febrile. LP in ED showed granylocytic leukocytosis with elevated protein concerning for
bacterial streptococcal meningitis with bacteremia
A/P:
#Acute meningitis/encephalitis
#Bacteremia
Bcx with Strep
repeat Bcx in 12h
Ceftriaxone 2g q12h, Vancomycin IV, Ampicillin, (Acyclovir stopped) as per ID consult
Dexamethasone cont for [address] without acute findings
Tylenol
Meningitis/Encephalitis PCR panel neg
Lyme pending
ordered Add-on for CSF cultures
Mononucleosis test positive
#Systolic murmur
known to patient
with bacteremia - will make sence to do Echo
#Mild alk.phos elevation
Improving so no need in additional imaging for now
follow LFT
no RUQ pain reported
#Mild hyponatremia
IVF to be stopped
follow BMP
#JANUSZ
resolved on IVF
most likely dehydration
IVF
follow Cr
#PETE
Iron IV
Outpatient colonoscopy advised
#Mild LDH elevation
no concern for hemolysis - most likely acute disease related
#Anxiety d/o
cont home meds
DVT ppx hep
Full code
I have spent at least 59min reviewing chart, test rtesults, communication with consultants, bedside and providing direct patient care
Anticipated Discharge: > 48 hours
Subjective/Interval History
-
Date of Service: June 01, 2025
Objective Data
-
Labs:
Laboratory Results
06/01/25
09:13
WBC 15.9 H
Hgb 9.7 L
Hct 27.1 L
Plt Count 294 D
Sodium 132 L
Potassium 3.7
Chloride 102
Carbon Dioxide 23
BUN 22 H
Creatinine 0.8
Glucose 176 H
Calcium 8.9
Total Bilirubin 0.3
AST 22
ALT 24
Alkaline Phosphatase 131 H
Vital Signs:
Vital Signs
Temp Pulse Resp BP Pulse Ox
97.2 F 68 16 124/66 98
06/01/25 07:15 06/01/25 07:15 06/01/25 07:15 06/01/25 07:15 06/01/25 07:15
I&O
05/31/25 06/01/25 06/02/25
06:59 06:59 06:59
Intake Total 2260 / 2260 960 / 960
Output Total 100 / 100
Balance -100 / -100 2260 / 2260 960 / 960
Review of Systems
-
History Source: Patient
All other systems: Reviewed and negative
Neuro: Reports Headache
Physical Exam
-
General: No Apparent Distress
HEENT: Normocephalic
Respiratory: Clear to Auscultation
Cardiac: Regular Rhythm
GI: Soft, Nontender and Nondistended
Musculoskeletal: No Clubbing, No Cyanosis and No Edema
Neuro: Awake, Alert, Oriented, AO x 3 and No Motor Deficits
Psych: Calm
[2025-06-01] MEDS: VANCOCIN 150 IV ×2 (11:22→20:04)
[2025-06-01] MEDS: VISBIOME 1 CAP PO (11:22)
--- NOTE | 2025-06-01 13:31 | CON.CAR ---
Addendum entered and electronically signed by James Pitts MD 06/01/25 15:27:
I saw and examined the patient independently and performed majority of the MDM.
The PROCESSING ASSOCIATE's note was reviewed and I agree with the note with changes/additions below.
Comment: 64 yo female with PMH of heart murmur and HTN is admitted with fever, headache. No CP, SOB, edema. Now being treated for meningitis, and noted to have Strep bacteremia. Exam with RRR, III/ systolic murmur, no edema. EKG: NSR, PVC,
anteroseptal infarct pattern. TTE: EF 60-65%, thickened mitral valve, myomatous appearance, moderate MR, cannot rule out vegetation vs myxomatous valve thickening.
Strep bacteremia. Continue IV Abx. Needs DONNY to evaluate for endocarditis.
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 DONNY tomorrow.
Original Note:
Consultation
Consultation Request
Date/Time Consultation Requested: 06/01/25 1227
Date/Time Consultation Performed: 06/11/25 1330
Requesting Provider: Dr. Carnes
Performing Provider: Patrizia PISANO for Dr. Pitts
Reason for Consultation: abnormal echo
Medical History
-
Chief Complaint: fever
History of Present Illness:
64 y/o female with hypertension and mitral valve prolapse who is here for evaluation of fever (up to 103.3 at home) with associated VEGA, body aches, fatigue. This started Friday afternoon. She reports a routine cold last week. In ER, monoscreen
positive. Lumbar puncture in ER CSF WBC elevated 6854. She is diagnosed with meningitis. Blood cx positive for strep species. Tmax here 102.6. She has been given IV abx and ID is on the case. Echo was done today and there is concern for MV
vegetation and we are consulted to evaluate for DONNY. At the time of my assessment, she is feeling much improved. She is in no distress. Denies any SOB.
Past Medical History
Past Medical History: HTN and Valvular Disease (MVP as above)
Past Surgical History: Other (October 2024 shoulder surgery)
Social History
Tobacco: Non-Smoker
Alcohol: Daily (1-2 glasses wine)
Drug: Other (THC gummies to sleep)
Personal:
Living: With Family
Family History
Family History: Reviewed & Not Pertinent
Allergies / Home Medications
Allergy/AdvReac Type Severity Reaction Status Date / Time
No Known Allergies Allergy Unverified 01/10/23 13:55
�Medication �Instructions �Recorded �Confirmed �Type
buspirone 15 mg tablet 15 mg PO BID 05/31/25 05/31/25 History
ibuprofen 200 mg tablet (Advil) 600 mg PO Q6HPRN PRN mild pain 05/31/25 05/31/25 History
losartan 50 mg-hydrochlorothiazide 1 tab PO DAILY 05/31/25 05/31/25 History
12.5 mg tablet
Review of Systems
-
History Source: Patient
All other systems: Negative unless noted
Constitutional: Fever, Fatigue and Other (achiness)
Neurological: Headache
Physical Exam
Vital Signs
Temp Pulse Resp BP Pulse Ox
97.2 F 68 16 124/66 98
06/01/25 07:15 06/01/25 07:15 06/01/25 07:15 06/01/25 07:15 06/01/25 07:15
Lab Results
06/01/25 09:13
06/01/25 09:13
Physical Exam
General: Well Developed, Well Nourished and No Apparent Distress
HEENT: Normocephalic and Anicteric
Respiratory: Clear and Non Labored Respirations
Musculoskeletal: No Edema
Skin: Warm
Neuro: AO x 3
Psych: Calm
Impression / Plan
-
Bacterial meningitis, strep bacteremia:
-diagnosis threat to life
-ID following and on ABX
-echo as below with concern for vegetation- we discussed recommendation for DONNY tomorrow and she is agreeable. Procedure discussed.
-also of note, monoscreen positive in ER
HTN:
-stable
-meds held with acute illness
Mitral valve disease:
-patient reports hx MVP. Echo as below. No SOB. Eval as above.
-Echo 06/01/25: Normal biventricular size and systolic function without regional wall motion abnormality. Myxomatous mitral valve leaflets with prolapse seen posterior > anterior. There is a mid-systolic, eccentric jet of moderate regurgitation
that may be underestimated due to the eccentric nature of the jet. Small mobile echodensity associated with posterior leaflet. Differential diagnosis includes vegetation, area of severe myxomatous prolapse, vs torn chordae. DONNY is recommended in
further evaluation. Mild pulmonary hypertension is seen.
JANUSZ:
-resolved with IVF
Hyponatremia:
-monitor
Data Reviewed
-
EKG: Tracing Personally Visualized and interpreted (SR with 1st degree AVB, PVC)
Radiology: Report Reviewed by me (CXR: There is no acute cardiopulmonary disease)
CT Scan: Report Reviewed by me (head: Unremarkable unenhanced CT of the brain)
Medical Tests (Nuc Med, Echo etc): Report Reviewed by me (echo as noted)
Labs: Labs Reviewed by me
[2025-06-01] MEDS: FERRLECIT 110 MG IV (14:42)
[2025-06-01 15:10] VITALS: BP 106/67
--- NOTE | 2025-06-01 15:30 | CM ---
CM reviewed chart, patient seen bedside, initial assessment completed.
Patient is a 64 y/o F with PMHx of anxiety came with 1 week of fevers and headaches, started as sharp, stabbing pain in R occipital area, now progressed to affect the back of the head.
Patient resides with her and 12 y/o step son in a multilevel home, no steps to enter. Pt reports step son has Autism and they attend family therapy bi-weekly.
Patient is independent with ADLs/IADLs, denies VN/SNF.
PCP Dr. Luna, Pharmacy [address], confirms prescription coverage.
Patient denies insecurities at home.
CM will continue to follow.
Plan; home no needs
--- NOTE | 2025-06-01 15:32 | W.PN.ID1 ---
Date of Service
Date of Service: June 01, 2025
Today's Communication
DONNY. Continue Vanc/CTX. DC ampicillin, steroid.
Assessment / Plan
# Bacterial meningitis
# Streptococcus species bacteremia (2 of 2 sets)-> suspect Viridans strep
# Suspect endocarditis source
# Fever trending down
# Acute leukocytosis due to steroid
# JANUSZ - improving
# hx Mitral valve prolapse
- CSF 6,854 WBC, 250 RBC, 89% polys, CSF/serum glucose ratio <0.40, protein>600 consistent with bacterial meningitis
- Meningitis-encephalitis PCR panel negative
- CSF gram stain no org; cx neg to date
- Follow repeat bcx's.
- TTE: Myxomatous mitral valve leaflets with prolapse, small mobile echodensity associated with posterior leaflet
- For DONNY.
- Continue Vancomycin IV, ceftriaxone 2g IV q12 pending bcx sensitivity data.
- DC ampicillin and dexamethasone
- Trend temps/wbc
- Droplet precaution dc'd.
Chief Complaint
-: Fever and Other (VEGA)
Subjective / Review of Systems
Feeling better today. Still with VEGA. Neck not as stiff. Profuse night sweats last night.
Vital Signs / Physical Exam
Vital Signs
Vital Signs
Temp Pulse Resp BP Pulse Ox
97.2 F 68 16 124/66 98
06/01/25 07:15 06/01/25 07:15 06/01/25 07:15 06/01/25 07:15 06/01/25 07:15
Physical Exam
Constitutional: Non-toxic
Eyes: No Conjunctival Hemorrhage and Sclera Anicteric
Cardiovascular: Regular Rate, S1/S2 and Murmur (LLSB)
Pulmonary: Clear
Gastrointestinal: Soft, Non Tender, Non Distended and Normal Bowel Sounds
Genito-Urinary: Negative CVA Tenderness
Extremities: Negative Edema
Neurological: AO x 3 and Other (Photophobia resolved); Negative Meningeal Signs
Objective Data
Lab Data
Lab Results
06/01/25 09:13
06/01/25 09:13
Estimated Creat Clear 55 ml/min 06/01/25 09:13
Lactic Acid 0.6 mmol/L (0.7-2.0) L 05/30/25 20:30
Total Bilirubin 0.3 mg/dl (0.2-1.3) 06/01/25 09:13
AST 22 U/L (14-36) 06/01/25 09:13
ALT 24 U/L (0-35) 06/01/25 09:13
Alkaline Phosphatase 131 U/L (38-126) H 06/01/25 09:13
Most recent labs reviewed.
Micro Results:
06/01/25 10:24 Blood Culture - Pending
Blood/Venous
06/01/25 09:13 Blood Culture - Pending
Blood/Venous
05/30/25 20:30 Blood Culture - Preliminary
Blood/Venous Streptococcus species
Gram Stain - Final
05/31/25 01:54 Blood Culture - Preliminary
Blood/Venous Positive culture in progress
Gram Stain - Preliminary
05/31/25 06:42 CSF Culture - Preliminary
Csf No Growth After 18-24 Hours
Gram Stain - Final
05/30/25 20:30 Influenza Types A & B (SIMONA) - Final
Nasal Swab Negative for Influenza A & B, NAAT
Negative results must be combined with clinical observations
and patient history.
Nucleic Acid Amplification test (NAAT)performed on the
[employer] platform.
05/31/25 06:35 Meningitis/Encephalitis Panel (PCR) - Final
Csf
05/31/25 01:54 Respiratory Syncytial Virus Ag - Final
Nasal Swab Negative for Respiratory Syncytial Virus.
A false negative result may be obtained with a specimen
collected early in the acute phase. If symptoms persist, a
new specimen should be tested.
05/30/25 CXR: There is no acute cardiopulmonary disease
--- NOTE | 2025-06-01 16:34 | W.PN.ID1 ---
Addendum entered and electronically signed by Shantell Pak MD 06/02/25 11:46:
I saw and evaluated the patient. I reviewed the resident�s note and agree with most of the findings and plan as documented in the resident�s note.
See my note same day.
Original Note:
Date of Service
Date of Service: June 01, 2025
Today's Communication
- await DONNY, continue zosyn/vanco
Assessment / Plan
Bacterial Meningitis from Strep Mitis/ oralis d/t possible cardiac source from mitral valve prolapse:
- CSF culture shows a 6,854 WBC, 250 RBC, 89% polys, CSF/serum glucose ratio <0.40, protein>600 consistent with bacterial meningitis
- Meningitis-encephalitis PCR panel negative
- CSF culture negative , repeat recent blood cultures negative
- Recent TTE shows Myxomatous mitral valve leaflets with prolapse, small mobile echodensity associated with posterior leaflet, awaiting DONNY to further evaluate vegetation
- Continue Vancomycin IV, ceftriaxone 2g IV q12
- DC ampicillin and dexamethasone
- Trend temps/wbc
Chief Complaint
-: Fever and Other (VEGA)
Subjective / Review of Systems
Review of Systems: No Fever, No Chills, Headache, Stiff Neck, No Swollen Lymph Nodes, No Cough, No Sputum Production, No Chest Pain, No Palpitations, Abdominal Pain, No Nausea, No Vomiting, No Diarrhea, No Dysuria, No Joint Pain and No Skin Rash
Vital Signs / Physical Exam
Vital Signs
Vital Signs
Temp Pulse Resp BP Pulse Ox
98.9 F 79 16 106/67 95
06/01/25 15:10 06/01/25 15:10 06/01/25 15:10 06/01/25 15:10 06/01/25 15:10
Physical Exam
Constitutional: No Acute Distress
Eyes: Pupils Equal
Cardiovascular: Regular Rate, S1/S2 and Murmur (3/6 systolic murmur heard over mitral area)
Pulmonary: Clear and Symmetric
Gastrointestinal: Soft, Non Tender, Non Distended and Normal Bowel Sounds
Extremities: Negative Edema, Clubbing or Cyanosis
Skin: Warm and Dry
Neurological: AO x 3
Lines: PICC (on right arm, no erythema)
Objective Data
Lab Data
Lab Results
06/01/25 09:13
06/01/25 09:13
Estimated Creat Clear 55 ml/min 06/01/25 09:13
Lactic Acid 0.6 mmol/L (0.7-2.0) L 05/30/25 20:30
Total Bilirubin 0.3 mg/dl (0.2-1.3) 06/01/25 09:13
AST 22 U/L (14-36) 06/01/25 09:13
ALT 24 U/L (0-35) 06/01/25 09:13
Alkaline Phosphatase 131 U/L (38-126) H 06/01/25 09:13
Most recent labs reviewed.
Micro Results:
06/01/25 10:24 Blood Culture - Pending
Blood/Venous
06/01/25 09:13 Blood Culture - Pending
Blood/Venous
05/30/25 20:30 Blood Culture - Preliminary
Blood/Venous Streptococcus species
Gram Stain - Final
05/31/25 01:54 Blood Culture - Preliminary
Blood/Venous Positive culture in progress
Gram Stain - Preliminary
05/31/25 06:42 CSF Culture - Preliminary
Csf No Growth After 18-24 Hours
Gram Stain - Final
05/30/25 20:30 Influenza Types A & B (SIMONA) - Final
Nasal Swab Negative for Influenza A & B, NAAT
Negative results must be combined with clinical observations
and patient history.
Nucleic Acid Amplification test (NAAT)performed on the
[employer] platform.
05/31/25 06:35 Meningitis/Encephalitis Panel (PCR) - Final
Csf
05/31/25 01:54 Respiratory Syncytial Virus Ag - Final
Nasal Swab Negative for Respiratory Syncytial Virus.
A false negative result may be obtained with a specimen
collected early in the acute phase. If symptoms persist, a
new specimen should be tested.
05/30/25 CXR: There is no acute cardiopulmonary disease
[2025-06-01 23:23] VITALS: BP 123/71
[2025-06-02] MEDS: MORPHINE SULFATE 2 MG IV (00:39)
[2025-06-02] MEDS: ZOFRAN 4 MG IV (00:47)
[2025-06-02] MEDS: TYLENOL 650 MG PO ×4 (01:51→23:03)
[2025-06-02 07:55] LABS: Hematocrit 25.4 % (37.0-47.0); Hemoglobin 9.1 g/dL (12.0-16.0); Mean Corp Hgb Conc. 35.8 g/dL (33.0-37.0); Mean Corpuscular Volume 84.1 fL (81.0-99.0); Nucleated Red Blood Cells % 0 %; Platelet Count 325 10^3/uL (130-400); Red Cell Dist. Width 11.3 % (11.5-14.5)
[2025-06-02 08:24] LABS: ALT (SGPT) 24 U/L (0-35); AST (SGOT) 21 U/L (14-36); Albumin 3.2 g/dl (3.5-5.0); Alkaline Phosphatase 104 U/L (38-126); Blood Urea Nitrogen 20 mg/dl (7-17); Calcium 9.0 mg/dl (8.4-10.2); Carbon Dioxide 22 mmol/L (22-30); Chloride 102 mmol/L (98-107); Estimated Creatinine Clearance 49 ml/min; Glucose 121 mg/dl (70-99); Potassium 3.7 mmol/L (3.5-5.1); Sodium 130 mmol/L (135-145); Total Protein 5.7 g/dl (6.3-8.2); eGFR > 60.00
[2025-06-02 08:25] VITALS: BP 111/62
--- NOTE | 2025-06-02 08:32 | PHA.VAN.FU ---
Vancomycin Assessment / Plan
- Assessment
Renal Function: Stable
WBC's are: Stable
In the past 24 hrs, patient has been: Afebrile
Concomitant Antimicrobials: ceftriaxone
- Assessment - Therapeutic Drug Monitoring
Random Level: 10 - drawn ~11.5H after previous dose of 750mg
Patient received 2 doses of Vanc 750mg yesterday
- Dosing Plan
Dosing by Level: Re-dose today (Vanc 750mg x2 doses - now and 1800)
Dosing Comments: will continue to trial BID dosing
est CrCl predictive of Q24H interval but patient continues to have good clearance with appropriate accumulation
Will continue to follow by level to ensure does not become supratherapeutic
- Monitoring Plan
Random Level: 06/03 0600
- Follow Up
Pharmacy will continue to follow.
Vancomycin Follow UP
- -
Patient Age: 64
Patient Sex: Female
Vancomycin Day #: 3
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
Requesting Provider: Dr. Pak
Pertinent Antimicrobial Allergies:
NKDA
Height / Weight:
Height 5 ft 2 in
Actual Weight 55.8 kg
- Vital Signs / Lab Results
Temp Pulse Resp BP Pulse Ox
98.8 F 74 16 111/62 97
06/02/25 08:25 06/02/25 08:25 06/02/25 08:25 06/02/25 08:25 06/02/25 08:25
Lab Results - Hematology
05/30/25 06/01/25 06/02/25
20:30 09:13 07:32
WBC 9.4 15.9 H 15.8 H
Lab Results - Chemistry
05/30/25 06/01/25 06/02/25
20:30 09:13 07:32
BUN 32 H 22 H 20 H
Creatinine 1.2 H 0.8 0.9
Estimated Creat Clear 55 49
Albumin 4.6 3.7 3.2 L
05/30/25
20:30
Lactic Acid 0.6 L
Microbiology Results
05/30/25 20:30 Blood Culture - Preliminary
Blood/Venous Streptococcus species
Gram Stain - Final
05/31/25 01:54 Blood Culture - Preliminary
Blood/Venous Positive culture in progress
Gram Stain - Preliminary
05/31/25 06:42 CSF Culture - Preliminary
Csf No Growth After 18-24 Hours
Gram Stain - Final
05/30/25 20:30 Influenza Types A & B (SIMONA) - Final
Nasal Swab Negative for Influenza A & B, NAAT
Negative results must be combined with clinical observations
and patient history.
Nucleic Acid Amplification test (NAAT)performed on the
[employer] platform.
05/31/25 06:35 Meningitis/Encephalitis Panel (PCR) - Final
Csf
Therapeutic Drug Monitoring
Random Vancomycin 10.0 ug/ml 06/02/25 07:32
--- NOTE | 2025-06-02 08:34 | W.PN.CD ---
Today's Communication / Plan
-
brenden
Impression / Plan
-
Bacterial meningitis, strep bacteremia:
-diagnosis threat to life
-ID following and on ABX
-echo as below with concern for vegetation- planning for BRENDEN today and she is agreeable.
-also of note, monoscreen positive in ER
HTN:
-stable
-meds held with acute illness
Mitral valve disease:
-patient reports hx MVP. Echo as below. No SOB. Eval as above.
-Echo 06/01/25: Normal biventricular size and systolic function without regional wall motion abnormality. Myxomatous mitral valve leaflets with prolapse seen posterior > anterior. There is a mid-systolic, eccentric jet of moderate regurgitation
that may be underestimated due to the eccentric nature of the jet. Small mobile echodensity associated with posterior leaflet. Differential diagnosis includes vegetation, area of severe myxomatous prolapse, vs torn chordae. BRENDEN is recommended in
further evaluation. Mild pulmonary hypertension is seen.--> BRENDEN Today
JANUSZ:
-resolved with IVF
Hyponatremia:
-monitor
Physical Exam
Vital Signs/Labs
Vital Signs
Temp Pulse Resp BP Pulse Ox
98.8 F 74 16 111/62 97
06/02/25 08:25 06/02/25 08:25 06/02/25 08:25 06/02/25 08:25 06/02/25 08:25
06/01/25 06/02/25 06/03/25
06:59 06:59 06:59
Actual Weight 123 lb 0.287 oz
06/02/25 07:32
06/02/25 07:32
Physical Exam
Constitutional: No acute distress
Cardiovascular: Rhythm & rate is regular, JVD pressure is normal and Systolic murmur present (HSM in all areas)
Respiratory: Respiratory effort normal, Lungs clear to auscul., Wheeze Absent, Crackles Absent and Rhonchi Absent
Neuro/Psych: AO x 3
Data Reviewed
-
Date of Service: June 02, 2025
[2025-06-02] MEDS: ROCEPHIN 2000 MG IV ×2 (08:36→19:49)
[2025-06-02] MEDS: BUSPAR 15 MG PO ×2 (08:36→19:48)
[2025-06-02] MEDS: STERILE WATER FOR INJECTION 20 ML IV ×2 (08:36→19:49)
[2025-06-02] MEDS: HEPARIN 5000 UNITS SC ×3 (08:36→23:02)
[2025-06-02] MEDS: VISBIOME 1 CAP PO (08:37)
[2025-06-02] MEDS: PROTONIX 40 MG PO (08:37)
[2025-06-02] MEDS: VANCOCIN 150 IV ×2 (09:31→17:31)
[2025-06-02] MEDS: ULTRAM 25 MG PO ×3 (09:39→22:14)
--- NOTE | 2025-06-02 10:21 | W.PN.HOSP.TC ---
Today's Communication/Plan
-
cont Abx as per ID
for DONNY
Ultram instead of morphine
Assessment / Plan
Assessment / Plan
64yo F with PMHx of anxiety, R rotator cuff and biceps tear s/p repair in October 2024 came with 1 week of fevers and headaches, started as sharp, stabing pain in R occipital area, now progressed to affect the back of the head. No visual symptoms,
paresthesia or weakness reported. No sick contacts, no recent travel and no animal bytes. Patient had some GI symptoms at the beginning, now subsided. Also febrile. LP in ED showed granylocytic leukocytosis with elevated protein concerning for
bacterial streptococcal meningitis with bacteremia
A/P:
#Acute meningitis/encephalitis
#Bacteremia
Bcx with Strep. mitis
repeat Bcx in 12h
Ceftriaxone 2g q12h, Vancomycin IV, Ampicillin, (Acyclovir stopped) as per ID consult
Dexamethasone stopped
Head CT without acute findings
Tylenol
Meningitis/Encephalitis PCR panel neg
Lyme pending
ordered Add-on for CSF cultures
Mononucleosis test positive
#Systolic murmur
#Myxomatous mitral valve leaflets with prolapse
#Small mobile echodensity associated with posterior leaflet
Cardio consult
DONNY
#Mild alk.phos elevation
Improving so no need in additional imaging for now
follow LFT
no RUQ pain reported
#Mild hyponatremia
IVF to be stopped
follow BMP
#JANUSZ
resolved on IVF
most likely dehydration
IVF
follow Cr
#PETE
Iron IV
Outpatient colonoscopy advised
#Mild LDH elevation
no concern for hemolysis - most likely acute disease related
#Anxiety d/o
cont home meds
DVT ppx hep
Full code
I have spent at least 51min reviewing chart, test results, communication with consultants, bedside and providing direct patient care
Anticipated Discharge: > 48 hours
Subjective/Interval History
-
Date of Service: June 02, 2025
Objective Data
-
Labs:
Laboratory Results
06/02/25
07:32
WBC 15.8 H
Hgb 9.1 L
Hct 25.4 L
Plt Count 325
Sodium 130 L
Potassium 3.7
Chloride 102
Carbon Dioxide 22
BUN 20 H
Creatinine 0.9
Glucose 121 H
Calcium 9.0
Total Bilirubin 0.2
AST 21
ALT 24
Alkaline Phosphatase 104
Vital Signs:
Vital Signs
Temp Pulse Resp BP Pulse Ox
98.8 F 74 16 111/62 97
06/02/25 08:25 06/02/25 08:25 06/02/25 08:25 06/02/25 08:25 06/02/25 08:25
I&O
06/01/25 06/02/25 06/03/25
06:59 06:59 06:59
Intake Total 2260 / 2260 2490 / 2490
Balance 2260 / 2260 2490 / 2490
Review of Systems
-
History Source: Patient
All other systems: Reviewed and negative
Neuro: Reports Headache
Physical Exam
-
General: No Apparent Distress
HEENT: Normocephalic
Respiratory: Clear to Auscultation
GI: Soft, Nontender and Nondistended
Neuro: Awake, Alert, Oriented, AO x 3 and No Motor Deficits
Psych: Calm; Negative Confused
--- NOTE | 2025-06-02 11:46 | W.PN.ID1 ---
Date of Service
Date of Service: June 02, 2025
Today's Communication
Await DONNY.
Continue Vanco/ceftriaxone.
Assessment / Plan
# Bacterial meningitis
# Streptococcus mitis/oralis bacteremia (2 of 2 sets)
. Per pt, bleeds easily when she flosses due to hx bleeding order (?thalassemia associated with Ashkenazi Jews)
# Suspect endocarditis MV
# Fever resolved
# Acute leukocytosis stable
# JANUSZ - improving
# hx Mitral valve prolapse
- CSF 6,854 WBC, 250 RBC, 89% polys, CSF/serum glucose ratio <0.40, protein>600 consistent with bacterial meningitis
- Meningitis-encephalitis PCR panel negative
- CSF gram stain no org; cx neg to date
- repeat bcx's neg to date
- TTE: Myxomatous mitral valve leaflets with prolapse, small mobile echodensity associated with posterior leaflet
- For DONNY today
- Continue Vancomycin IV, ceftriaxone 2g IV q12 pending bcx sensitivity data.
- Trend wbc
Chief Complaint
-: Other (VEGA)
Subjective / Review of Systems
at bedside.
VEGA still present. No more neck stiffness.
Vital Signs / Physical Exam
Vital Signs
Vital Signs
Temp Pulse Resp BP Pulse Ox
98.8 F 74 16 111/62 97
06/02/25 08:25 06/02/25 08:25 06/02/25 08:25 06/02/25 08:25 06/02/25 08:25
Physical Exam
Constitutional: No Acute Distress
Eyes: No Conjunctival Hemorrhage and Sclera Anicteric
Cardiovascular: Regular Rate, S1/S2 and Murmur (LLSB)
Pulmonary: Clear
Gastrointestinal: Soft, Non Tender, Non Distended and Normal Bowel Sounds
Genito-Urinary: Negative CVA Tenderness
Extremities: Negative Splinter Hemorrhage
Neurological: AO x 3; Negative Meningeal Signs
Objective Data
Lab Data
Lab Results
06/02/25 07:32
06/02/25 07:32
Estimated Creat Clear 49 ml/min 06/02/25 07:32
Lactic Acid 0.6 mmol/L (0.7-2.0) L 05/30/25 20:30
Total Bilirubin 0.2 mg/dl (0.2-1.3) 06/02/25 07:32
AST 21 U/L (14-36) 06/02/25 07:32
ALT 24 U/L (0-35) 06/02/25 07:32
Alkaline Phosphatase 104 U/L (38-126) 06/02/25 07:32
Most recent labs reviewed.
Micro Results:
06/01/25 10:24 Blood Culture - Preliminary
Blood/Venous No Growth in 24 hours- Final report to follow
05/30/25 20:30 Blood Culture - Preliminary
Blood/Venous Strep mitis/oralis
Gram Stain - Final
06/01/25 09:13 Blood Culture - Preliminary
Blood/Venous No Growth in 24 hours- Final report to follow
05/31/25 06:42 CSF Culture - Preliminary
Csf No Growth After 48 Hours
Gram Stain - Final
05/31/25 01:54 Blood Culture - Preliminary
Blood/Venous Positive culture in progress
Gram Stain - Preliminary
05/30/25 20:30 Influenza Types A & B (SIMONA) - Final
Nasal Swab Negative for Influenza A & B, NAAT
Negative results must be combined with clinical observations
and patient history.
Nucleic Acid Amplification test (NAAT)performed on the
[employer] platform.
05/31/25 06:35 Meningitis/Encephalitis Panel (PCR) - Final
Csf
05/31/25 01:54 Respiratory Syncytial Virus Ag - Final
Nasal Swab Negative for Respiratory Syncytial Virus.
A false negative result may be obtained with a specimen
collected early in the acute phase. If symptoms persist, a
new specimen should be tested.
05/30/25 CXR: There is no acute cardiopulmonary disease
[2025-06-02] MEDS: FERRLECIT 110 MG IV (13:58)
[2025-06-02 14:00] VITALS: BP 115/60
[2025-06-02 14:30] VITALS: BP 133/72
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
[2025-06-02 15:42] VITALS: BP 129/72
[2025-06-02 23:10] VITALS: BP 123/70
[2025-06-03 01:41] LABS: Lyme Disease DNA by PCR Not Detected; Lyme Source CSF
[2025-06-03] MEDS: TYLENOL 650 MG PO ×2 (05:38→18:08)
[2025-06-03] MEDS: ZOFRAN 4 MG IV (05:39)
[2025-06-03 07:00] VITALS: BP 122/68
[2025-06-03] MEDS: BUSPAR 15 MG PO ×2 (07:53→19:59)
[2025-06-03] MEDS: PROTONIX 40 MG PO (07:54)
[2025-06-03] MEDS: HEPARIN 5000 UNITS SC ×3 (07:54→23:20)
[2025-06-03] MEDS: VISBIOME 1 CAP PO (07:54)
[2025-06-03] MEDS: ROCEPHIN 2000 MG IV ×2 (07:55→19:59)
[2025-06-03] MEDS: STERILE WATER FOR INJECTION 20 ML IV ×2 (07:55→19:59)
[2025-06-03] MEDS: ULTRAM 25 MG PO (08:04)
[2025-06-03 09:21] LABS: Hematocrit 26.8 % (37.0-47.0); Hemoglobin 9.5 g/dL (12.0-16.0); Mean Corp Hgb Conc. 35.4 g/dL (33.0-37.0); Mean Corpuscular Volume 85.6 fL (81.0-99.0); Nucleated Red Blood Cells % 0 %; Platelet Count 394 10^3/uL (130-400); Red Cell Dist. Width 11.5 % (11.5-14.5)
[2025-06-03 09:29] LABS: ALT (SGPT) 22 U/L (0-35); AST (SGOT) 18 U/L (14-36); Albumin 3.3 g/dl (3.5-5.0); Alkaline Phosphatase 97 U/L (38-126); Blood Urea Nitrogen 15 mg/dl (7-17); Calcium 8.7 mg/dl (8.4-10.2); Carbon Dioxide 26 mmol/L (22-30); Chloride 101 mmol/L (98-107); Estimated Creatinine Clearance 55 ml/min; Glucose 92 mg/dl (70-99); Potassium 3.7 mmol/L (3.5-5.1); Sodium 132 mmol/L (135-145); Total Protein 5.8 g/dl (6.3-8.2); eGFR > 60.00
--- NOTE | 2025-06-03 11:17 | W.PN.HOSP.TC ---
Today's Communication/Plan
-
pendign final ID reccs for ABx, then PICC and home infusions for 4 weeks at least
Assessment / Plan
Assessment / Plan
64yo F with PMHx of anxiety, R rotator cuff and biceps tear s/p repair in October 2024 came with 1 week of fevers and headaches, started as sharp, stabing pain in R occipital area, now progressed to affect the back of the head. No visual symptoms,
paresthesia or weakness reported. No sick contacts, no recent travel and no animal bytes. Patient had some GI symptoms at the beginning, now subsided. Also febrile. LP in ED showed granylocytic leukocytosis with elevated protein concerning for
bacterial streptococcal meningitis with bacteremia
A/P:
#Acute meningitis/encephalitis
#Bacteremia 2/2 acute bacterial endocarditis
Bcx with Strep. mitis
repeat Bcx in 12h NTD
Ceftriaxone 2g q12h, Vancomycin IV, (Ampicillin, Acyclovir stopped) as per ID consult
Dexamethasone stopped
Head CT without acute findings
Tylenol
Meningitis/Encephalitis PCR panel neg
Lyme pending
ordered Add-on for CSF cultures -remains neg
Mononucleosis test positive
Eventual PICC and home infusions
#Systolic murmur
#Myxomatous mitral valve leaflets with prolapse
#Small mobile echodensity associated with posterior leaflet
Cardio consult
DONNY: confirmed vegetation on MV, planned for eventual intervention by CTS after treating bacteremia x4 weeks. normal LV function and size, EF 60-65%, MV with thickening of anterior and posterior leaflets and mobile, pedunculated echodensity at P2
(image 13), with prolapse, globular portion measured 5mm x 5mm with 5mm stalk, moderate/severe MR and no MS, normal left atrium size, trace AI, and mild/moderate TR
#Mild alk.phos elevation
Improving so no need in additional imaging for now
follow LFT
no RUQ pain reported
#Mild hyponatremia
IVF to be stopped
follow BMP
#JANUSZ
resolved on IVF
most likely dehydration
IVF
follow Cr
#PETE
Iron IV
Outpatient colonoscopy advised
#Mild LDH elevation
no concern for hemolysis - most likely acute disease related
#Anxiety d/o
cont home meds
DVT ppx hep
Full code
I have spent at least 51min reviewing chart, test results, communication with consultants, bedside and providing direct patient care
Anticipated Discharge: > 48 hours
Subjective/Interval History
-
Date of Service: June 03, 2025
Objective Data
-
Labs:
Laboratory Results
06/03/25
07:47
WBC 7.3
Hgb 9.5 L
Hct 26.8 L
Plt Count 394 D
Sodium 132 L
Potassium 3.7
Chloride 101
Carbon Dioxide 26
BUN 15
Creatinine 0.8
Glucose 92
Calcium 8.7
Total Bilirubin 0.2
AST 18
ALT 22
Alkaline Phosphatase 97
Vital Signs:
Vital Signs
Temp Pulse Resp BP Pulse Ox
98.2 F 65 16 122/68 98
06/03/25 07:00 06/03/25 07:00 06/03/25 07:00 06/03/25 07:00 06/03/25 07:00
I&O
06/02/25 06/03/25 06/04/25
06:59 06:59 06:59
Intake Total 2490 / 2490 480 / 480
Balance 2490 / 2490 480 / 480
Review of Systems
-
History Source: Patient
All other systems: Reviewed and negative
Physical Exam
-
General: No Apparent Distress
HEENT: Normocephalic
Musculoskeletal: No Clubbing, No Cyanosis and No Edema
Neuro: Awake, Alert, Oriented and AO x 3
Psych: Calm
--- NOTE | 2025-06-03 12:13 | W.PN.CD ---
Today's Communication / Plan
-
IV antibiotics
outpatient follow up with cardiology with and CT surgery
please call us with additional questions
Impression / Plan
-
Bacterial meningitis, strep bacteremia, now with evidence of acute bacterial endocarditis of mitral valve
-ID following and on ABX
-DONNY shows: There is thickening of the anterior and posterior leaflets of the mitral valve. There is a mobile, pedunculated ecodensity at P2 (image 13), with prolapse. The globular portion measures 5mm x 5 mm, with a 5 mm stalk. In setting of
bacteremia, this is concerning for vegetation. Moderate/severe, highly eccentric mitral valve regurgitation.
-no evidence of HF
-CT surg consult reviewed: Outpatient appointment made in 4-weeks with Dr. Chirag Brambila for consideration of MV repair with TTE to be obtained prior to appointment.
HTN:
-stable
-meds held with acute illness
Physical Exam
Vital Signs/Labs
Vital Signs
Temp Pulse Resp BP Pulse Ox
98.2 F 65 16 122/68 98
06/03/25 07:00 06/03/25 07:00 06/03/25 07:00 06/03/25 07:00 06/03/25 07:00
06/03/25 07:47
06/03/25 07:47
Physical Exam
Constitutional: No acute distress and Comfortable
EENT: Moist mucous membranes
Cardiovascular: Rhythm & rate is regular, Pedal edema is absent, JVD pressure is normal and Systolic murmur present
Respiratory: Respiratory effort normal and Lungs clear to auscul.
Neuro/Psych: AO x 3
Data Reviewed
-
Date of Service: June 03, 2025
Labs: Labs Reviewed by me
--- NOTE | 2025-06-03 12:37 | W.PN.ID1 ---
Addendum entered and electronically signed by Shantell Pak MD 06/03/25 13:57:
I saw and evaluated the patient. I reviewed the resident�s note and agree with most of the findings and plan as documented in the resident�s note.
VEGA continues to improve.
Blood Culture Final 06/02/25-1256
Positive for Streptococcus species.
Performed by [facility] PCR methodology.
Strep mitis/oralis
Organism 1 Strep mitis/oralis
1. Strep mitis/oralis
M.I.C. RX
--------- ---
Ampicillin 0.25 S
Azithromycin <=0.5 S
Ceftriaxone <=0.25 S
Clindamycin <=0.06 S
Levofloxacin 2 R
Penicillin G 0.12 S
Tetracycline >4 R
Vancomycin 0.5 S
A/P
# Streptococcus mitis/oralis bacteremia (2 of 2 sets)
. Per pt, bleeds easily when she flosses due to hx bleeding order (?thalassemia associated with Ashkenazi Jews)
# Bacterial meningitis
# Infective endocarditis [place] MV with severe mitral regurgitation
# Fever resolved
# Acute leukocytosis resolved
# JANUSZ -resolved
# hx Mitral valve prolapse
- CSF 6,854 WBC, 250 RBC, 89% polys, CSF/serum glucose ratio <0.40, protein>600 consistent with bacterial meningitis
- Meningitis-encephalitis PCR panel negative
- CSF gram stain no org; cx neg at 72h
- repeat bcx's neg to date
- DONNY 5mm mobile, pedunculated echodensity MV with moderate to severe regurgitation.
- Per cardiothoracic, no urgent need for surgical intervention.
- DC Vancomycin.
- Continue ceftriaxone 2g IV q12 through 06/13/25 (for meningitis dose), then ceftriaxone 2g IV q24 through 06/29/2025 for remaining 2 weeks (4 weeks total course for Strep endocarditis).
- Follow weekly CBC, CMP
- Infusion sheet submitted to test case developer 06/03/25.
- Place midline when close to discharge.
Original Note:
Date of Service
Date of Service: June 03, 2025
Today's Communication
- set patient up with home IV antibiotics
Assessment / Plan
Bacterial Meningitis from Strep Mitis/ oralis
H/o mitral valve prolapse with vegetations on DONNY:
- Initial CSF culture shows a 6,854 WBC, 250 RBC, 89% polys, CSF/serum glucose ratio <0.40, protein>600 consistent with bacterial meningitis
- Meningitis-encephalitis PCR panel negative
- CSF culture negative , initial two blood cultures grew Strep mitis/ oralis, repeat recent blood cultures negative
- Recent DONNY shows thickening of the anterior and posterior leaflets of the mitral valve. There is a mobile, pedunculated echodensity at P2 (image 13), with prolapse. The globular portion measures 5mm x 5 mm, with a 5 mm stalk. In setting of
bacteremia, this is concerning for vegetation. Moderate/severe, highly eccentric mitral valve regurgitation. No mitral stenosis.
- No heart failure symptoms, persistent bacteremia, or LVEF < 60%
- Cardiology following, cardiothoracic surgery f/u outpatient to discuss mitral valve repair
- Continue ceftriaxone 2g IV q12 for 2 weeks ( to treat meningitis) on discharge, and then 2g IV Q24h ( to treat endocarditis) for 2 weeks. Today is 2nd day of treatment ( 1st negative blood culture was on 06/01/25)
- D/C ampicillin, Vancomycin ( culture shows sensitivity to ceftriaxone) and dexamethasone
- Trend temps/wbc
Chief Complaint
-: Other (VEGA)
Subjective / Review of Systems
Review of Systems: No Fever, No Chills, No Headache, No Pharyngitis, No Stiff Neck, No Cough, No Sputum Production, No Chest Pain, No Palpitations, No Abdominal Pain, No Nausea, No Vomiting, No Diarrhea and No Dysuria
Vital Signs / Physical Exam
Vital Signs
Vital Signs
Temp Pulse Resp BP Pulse Ox
98.2 F 65 16 122/68 98
06/03/25 07:00 06/03/25 07:00 06/03/25 07:00 06/03/25 07:00 06/03/25 07:00
Physical Exam
Constitutional: No Acute Distress
Cardiovascular: Regular Rate and Murmur (There is 3/6 systolic murmur heard over mitral area )
Pulmonary: Clear and Symmetric
Gastrointestinal: Soft, Non Tender, Non Distended and Normal Bowel Sounds
Extremities: Negative Edema
Skin: Warm and Dry
Neurological: AO x 3
Psychological: Calm
Objective Data
Lab Data
Lab Results
06/03/25 07:47
06/03/25 07:47
Estimated Creat Clear 55 ml/min 06/03/25 07:47
Lactic Acid 0.6 mmol/L (0.7-2.0) L 05/30/25 20:30
Total Bilirubin 0.2 mg/dl (0.2-1.3) 06/03/25 07:47
AST 18 U/L (14-36) 06/03/25 07:47
ALT 22 U/L (0-35) 06/03/25 07:47
Alkaline Phosphatase 97 U/L (38-126) 06/03/25 07:47
Most recent labs reviewed.
Microbiology: Report Reviewed
Micro Results:
05/31/25 06:42 CSF Culture - Preliminary
Csf No Growth After 72 Hours
Gram Stain - Final
06/01/25 10:24 Blood Culture - Preliminary
Blood/Venous No Growth in 48 hours- Final report to follow
06/01/25 09:13 Blood Culture - Preliminary
Blood/Venous No Growth in 48 hours- Final report to follow
05/31/25 01:54 Blood Culture - Final
Blood/Venous Strep mitis/oralis
Gram Stain - Final
05/30/25 20:30 Blood Culture - Final
Blood/Venous Strep mitis/oralis
Gram Stain - Final
05/30/25 20:30 Influenza Types A & B ([facility]) - Final
Nasal Swab Negative for Influenza A & B, NAAT
Negative results must be combined with clinical observations
and patient history.
Nucleic Acid Amplification test (NAAT)performed on the
[employer] [address] platform.
05/31/25 06:35 Meningitis/Encephalitis Panel (PCR) - Final
Csf
05/31/25 01:54 Respiratory Syncytial Virus Ag - Final
Nasal Swab Negative for Respiratory Syncytial Virus.
A false negative result may be obtained with a specimen
collected early in the acute phase. If symptoms persist, a
new specimen should be tested.
DONNY:
SUMMARY
1. Normal left ventricular size, wall thickness and systolic function. Estimated LVEF 60-65%.
2. There is thickening of the anterior and posterior leaflets of the mitral valve. There is a mobile, pedunculated ecodensity at P2 (image 13), with prolapse. The globular portion measures 5mm x 5 mm, with a 5 mm stalk. In setting of bacteremia,
this is concerning for vegetation. Moderate/severe, highly eccentric mitral valve regurgitation. No mitral stenosis.
3. Trace aortic regurgitation seen.
4. Mild/moderate tricuspid regurgitation.
E on 06/02/25
-
05/30/25 CXR: There is no acute cardiopulmonary disease
Chest X-Ray: Report Reviewed
--- NOTE | 2025-06-03 13:05 | CM ---
Addendum entered by Yaritza Torre 06/03/25 14:42:
CM spoke with Felicity from [facility]- patient covered 80% for supplies/nursing until OOP is met. Weekly drug copay $144.77
Felicity spoke with patient, will come Friday to hospital to do bedside teaching with .
Will fax line info to [facility] once available.
Original Note:
CM reviewed chart, script received by ID for home infusion.
Patient seen bedside, aware of need for home IV antibiotics.
CM provided options for home infusion- patient agreeable to referral to [facility].
Clinicals faxed to [facility]- will await confirmation of benefits, nursing availability. Pt confirms her will be learning to administer antibiotic.
Cm will continue to follow.
Plan; referral to [facility] for home IV antibiotics
[2025-06-03] MEDS: FERRLECIT 110 MG IV (14:03)
[2025-06-03 15:00] VITALS: BP 131/75
[2025-06-03 23:02] VITALS: BP 129/75
[2025-06-04] MEDS: TYLENOL 650 MG PO ×2 (00:09→07:47)
[2025-06-04] MEDS: ULTRAM 25 MG PO (03:02)
[2025-06-04 04:51] LABS: Blood Urea Nitrogen 14 mg/dl (7-17); Calcium 8.8 mg/dl (8.4-10.2); Carbon Dioxide 25 mmol/L (22-30); Chloride 105 mmol/L (98-107); Estimated Creatinine Clearance 63 ml/min; Glucose 99 mg/dl (70-99); Potassium 3.7 mmol/L (3.5-5.1); Sodium 135 mmol/L (135-145); eGFR > 60.00
[2025-06-04 05:05] LABS: Hematocrit 23.9 % (37.0-47.0); Hemoglobin 8.7 g/dL (12.0-16.0); Mean Corp Hgb Conc. 36.4 g/dL (33.0-37.0); Mean Corpuscular Volume 84.8 fL (81.0-99.0); Nucleated Red Blood Cells % 0 %; Platelet Count 378 10^3/uL (130-400); Red Cell Dist. Width 11.3 % (11.5-14.5)
[2025-06-04] MEDS: ROCEPHIN 2000 MG IV ×2 (07:46→19:32)
[2025-06-04] MEDS: STERILE WATER FOR INJECTION 20 ML IV ×2 (07:46→19:33)
[2025-06-04] MEDS: HEPARIN 5000 UNITS SC ×3 (07:47→23:35)
[2025-06-04] MEDS: BUSPAR 15 MG PO ×2 (07:47→19:32)
[2025-06-04] MEDS: PROTONIX 40 MG PO (07:47)
[2025-06-04] MEDS: VISBIOME 1 CAP PO (07:47)
[2025-06-04 08:10] VITALS: BP 133/77
--- NOTE | 2025-06-04 10:43 | W.PN.HOSP.TC ---
Today's Communication/Plan
-
cont Abx
Assessment / Plan
Assessment / Plan
64yo F with PMHx of anxiety, R rotator cuff and biceps tear s/p repair in October 2024 came with 1 week of fevers and headaches, started as sharp, stabing pain in R occipital area, now progressed to affect the back of the head. No visual symptoms,
paresthesia or weakness reported. No sick contacts, no recent travel and no animal bytes. Patient had some GI symptoms at the beginning, now subsided. Also febrile. LP in ED showed granulocytic leukocytosis with elevated protein concerning for
bacterial streptococcal meningitis with Strep. mitis bacteremia, subsequently found acute bacterial endocarditis with vegetations on MV planned for surgical mgmt in 4 weeks with CTS. On Abx as per ID: Ceftriaxone 2g q12h for 14 days (through
06/13/25), then 2g daily for 14 more days (through 06/29/25) CM arranged home infusions that scheduled to start at noon on 06/06/25, therefore planned to be d/c in AM on 06/06/25 as patient will need Rocephin dose late venting on 06/05/25.
A/P:
#Acute meningitis/encephalitis
#Bacteremia 2/2 acute bacterial endocarditis
Bcx with Strep. mitis
repeat Bcx in 12h NTD
Ceftriaxone 2g q12h for 14 days (through 06/13/25), then 2g daily for 14 more days (through 06/29/25), Vancomycin IV, (Ampicillin, Acyclovir stopped) as per ID consult
Weekly ESR/CRP
Dexamethasone stopped
Head CT without acute findings
Tylenol
Meningitis/Encephalitis PCR panel neg
Lyme pending
ordered Add-on for CSF cultures -remains neg
Mononucleosis test positive
Eventual PICC and home infusions
#Systolic murmur
#Myxomatous mitral valve leaflets with prolapse
#Small mobile echodensity associated with posterior leaflet
Cardio consult
DONNY: confirmed vegetation on MV, planned for eventual intervention by CTS after treating bacteremia x4 weeks. normal LV function and size, EF 60-65%, MV with thickening of anterior and posterior leaflets and mobile, pedunculated echodensity at P2
(image 13), with prolapse, globular portion measured 5mm x 5mm with 5mm stalk, moderate/severe MR and no MS, normal left atrium size, trace AI, and mild/moderate TR
#Mild alk.phos elevation
Improving so no need in additional imaging for now
follow LFT
no RUQ pain reported
#Mild hyponatremia
IVF to be stopped
follow BMP
#JANUSZ
resolved on IVF
most likely dehydration
IVF
follow Cr
#PETE
Iron IV
Outpatient colonoscopy advised - patient had last 2 years ago with - encouraged to discuss as outpatient
PPI
No overt bleeding abd brown stool
FOBT neg
#Constipation
resolved on 06/03/25
#Mild LDH elevation
no concern for hemolysis - most likely acute disease related
#Anxiety d/o
cont home meds
DVT ppx hep
Full code
I have spent at least 51min reviewing chart, test results, communication with consultants, bedside and providing direct patient care
Anticipated Discharge: 24 - 48 hours
Subjective/Interval History
-
Date of Service: June 04, 2025
Objective Data
-
Labs:
Laboratory Results
06/04/25
04:19
WBC 6.8
Hgb 8.7 L
Hct 23.9 L
Plt Count 378
Sodium 135
Potassium 3.7
Chloride 105
Carbon Dioxide 25
BUN 14
Creatinine 0.7
Glucose 99
Calcium 8.8
Vital Signs:
Vital Signs
Temp Pulse Resp BP Pulse Ox
98.8 F 68 16 133/77 97
06/04/25 08:10 06/04/25 08:10 06/04/25 08:10 06/04/25 08:10 06/04/25 08:10
I&O
06/03/25 06/04/25 06/05/25
06:59 06:59 06:59
Intake Total 480 / 480 720 / 720
Balance 480 / 480 720 / 720
Review of Systems
-
History Source: Patient
All other systems: Reviewed and negative
Physical Exam
-
General: No Apparent Distress
HEENT: Normocephalic
Cardiac: Regular Rhythm and Murmur
GI: Soft, Nontender and Nondistended
Musculoskeletal: No Clubbing, No Cyanosis and No Edema
Neuro: Awake, Alert, Oriented and AO x 3
[2025-06-04] MEDS: FERRLECIT 110 MG IV (13:52)
[2025-06-04 15:47] VITALS: BP 140/81
[2025-06-04 23:04] VITALS: BP 130/80
[2025-06-05] MEDS: TYLENOL 650 MG PO ×3 (04:32→21:09)
[2025-06-05 07:57] VITALS: BP 139/87
[2025-06-05] MEDS: BUSPAR 15 MG PO ×2 (08:10→19:50)
[2025-06-05] MEDS: STERILE WATER FOR INJECTION 20 ML IV ×2 (08:11→19:50)
[2025-06-05] MEDS: ROCEPHIN 2000 MG IV ×2 (08:11→19:50)
[2025-06-05] MEDS: VISBIOME 1 CAP PO (08:11)
[2025-06-05] MEDS: HEPARIN 5000 UNITS SC ×3 (08:11→23:40)
[2025-06-05] MEDS: PROTONIX 40 MG PO (08:11)
[2025-06-05] MEDS: ULTRAM 25 MG PO (08:13)
[2025-06-05] MEDS: ZOFRAN 4 MG IV (08:42)
[2025-06-05] MEDS: DIFLUCAN 150 MG PO (10:30)
--- NOTE | 2025-06-05 11:27 | W.PN.HOSP.TC ---
Today's Communication/Plan
-
DC in AM after last dose of ceftriaxone tonight after confirmation with CM that home infusion still scheduled
Assessment / Plan
Assessment / Plan
64yo F with PMHx of anxiety, R rotator cuff and biceps tear s/p repair in October 2024 came with 1 week of fevers and headaches, started as sharp, stabing pain in R occipital area, now progressed to affect the back of the head. No visual symptoms,
paresthesia or weakness reported. No sick contacts, no recent travel and no animal bytes. Patient had some GI symptoms at the beginning, now subsided. Also febrile. LP in ED showed granulocytic leukocytosis with elevated protein concerning for
bacterial streptococcal meningitis with Strep. mitis bacteremia, subsequently found acute bacterial endocarditis with vegetations on MV planned for surgical mgmt in 4 weeks with CTS. On Abx as per ID: Ceftriaxone 2g q12h for 14 days (through
06/13/25), then 2g daily for 14 more days (through 06/29/25) CM arranged home infusions that scheduled to start at noon on 06/06/25, therefore planned to be d/c in AM on 06/06/25 as patient will need Rocephin dose late venting on 06/05/25.
A/P:
#Acute meningitis/encephalitis
#Bacteremia 2/2 acute bacterial endocarditis
Bcx with Strep. mitis
repeat Bcx in 12h NTD
Ceftriaxone 2g q12h for 14 days (through 06/13/25), then 2g daily for 14 more days (through 06/29/25), Vancomycin IV, (Ampicillin, Acyclovir stopped) as per ID consult
Weekly ESR/CRP
Dexamethasone stopped
Head CT without acute findings
Tylenol
Meningitis/Encephalitis PCR panel neg
Lyme pending
ordered Add-on for CSF cultures -remains neg
Mononucleosis test positive
Eventual PICC and home infusions
#Systolic murmur
#Myxomatous mitral valve leaflets with prolapse
#Small mobile echodensity associated with posterior leaflet
Cardio consult
DONNY: confirmed vegetation on MV, planned for eventual intervention by CTS after treating bacteremia x4 weeks. normal LV function and size, EF 60-65%, MV with thickening of anterior and posterior leaflets and mobile, pedunculated echodensity at P2
(image 13), with prolapse, globular portion measured 5mm x 5mm with 5mm stalk, moderate/severe MR and no MS, normal left atrium size, trace AI, and mild/moderate TR
#Mild alk.phos elevation
Improving so no need in additional imaging for now
follow LFT
no RUQ pain reported
#Vaginal candidiasis
Fluconazole one dose on 06/05/25
#Mild hyponatremia
IVF to be stopped
follow BMP
#JANUSZ
resolved on IVF
most likely dehydration
IVF
follow Cr
#PETE
Iron IV
Outpatient colonoscopy advised - patient had last 2 years ago with - encouraged to discuss as outpatient
PPI
No overt bleeding abd brown stool
FOBT neg
#Constipation
resolved on 06/03/25
#Mild LDH elevation
no concern for hemolysis - most likely acute disease related
#Anxiety d/o
cont home meds
DVT ppx hep
Full code
I have spent at least 36min reviewing chart, test results, communication with consultants, bedside and providing direct patient care
Anticipated Discharge: Within 24 hours
Subjective/Interval History
-
Date of Service: June 05, 2025
Objective Data
-
Vital Signs:
Vital Signs
Temp Pulse Resp BP Pulse Ox
98.6 F 79 16 139/87 98
06/05/25 07:57 06/05/25 07:57 06/05/25 07:57 06/05/25 07:57 06/05/25 07:57
I&O
06/04/25 06/05/25 06/06/25
06:59 06:59 06:59
Intake Total 720 / 720
Balance 720 / 720
Review of Systems
-
History Source: Patient
All other systems: Reviewed and negative
Genitourinary: Reports Vaginal Discharge and Other
[2025-06-05] MEDS: FERRLECIT 110 MG IV (13:21)
--- NOTE | 2025-06-05 13:29 | W.PN.ID1 ---
Date of Service
Date of Service: June 05, 2025
Today's Communication
Continue antibiotics
Assessment / Plan
Bacterial Meningitis from Strep mitis/oralis
H/o mitral valve prolapse with vegetations on DONNY:
- Initial CSF culture shows a 6,854 WBC, 250 RBC, 89% polys, CSF/serum glucose ratio <0.40, protein>600 consistent with bacterial meningitis
- Meningitis-encephalitis PCR panel negative
- CSF culture negative , initial two blood cultures grew Strep mitis/ oralis, repeat recent blood cultures negative
- Recent DONNY shows thickening of the anterior and posterior leaflets of the mitral valve. There is a mobile, pedunculated echodensity at P2 (image 13), with prolapse. The globular portion measures 5mm x 5 mm, with a 5 mm stalk. In setting of
bacteremia, this is concerning for vegetation. Moderate/severe, highly eccentric mitral valve regurgitation. No mitral stenosis.
- No heart failure symptoms, persistent bacteremia, or LVEF < 60%
- Cardiology following, cardiothoracic surgery f/u outpatient to discuss mitral valve repair
- Continue ceftriaxone 2g IV q12 for 2 weeks ( to treat meningitis) on discharge, and then 2g IV Q24h ( to treat endocarditis) for 2 weeks.
- Trend temps/wbc
Chief Complaint
-: Other (VEGA)
Subjective / Review of Systems
Review of Systems: No Fever and No Chills
Vital Signs / Physical Exam
Vital Signs
Vital Signs
Temp Pulse Resp BP Pulse Ox
98.6 F 79 16 139/87 98
06/05/25 07:57 06/05/25 07:57 06/05/25 07:57 06/05/25 07:57 06/05/25 07:57
Physical Exam
Constitutional: No Acute Distress
Cardiovascular: Regular Rate and Murmur (There is 3/6 systolic murmur heard over mitral area )
Pulmonary: Clear, Symmetric and Non Labored
Gastrointestinal: Soft, Non Tender, Non Distended and Normal Bowel Sounds
Extremities: Negative Edema
Skin: Warm and Dry
Neurological: AO x 3
Psychological: Calm
Lines: PICC (RUE)
Objective Data
Lab Data
Lab Results
06/04/25 04:19
06/04/25 04:19
Estimated Creat Clear 63 ml/min 06/04/25 04:19
Lactic Acid 0.6 mmol/L (0.7-2.0) L 05/30/25 20:30
Total Bilirubin 0.2 mg/dl (0.2-1.3) 06/03/25 07:47
AST 18 U/L (14-36) 06/03/25 07:47
ALT 22 U/L (0-35) 06/03/25 07:47
Alkaline Phosphatase 97 U/L (38-126) 06/03/25 07:47
Most recent labs reviewed.
Micro Results:
05/31/25 06:42 CSF Culture - Final
Csf No Growth After 5 Days - Final Report
Gram Stain - Final
06/01/25 10:24 Blood Culture - Preliminary
Blood/Venous No Growth in 4 days- Final report to follow
06/01/25 09:13 Blood Culture - Preliminary
Blood/Venous No Growth in 4 days- Final report to follow
05/31/25 01:54 Blood Culture - Final
Blood/Venous Strep mitis/oralis
Gram Stain - Final
05/30/25 20:30 Blood Culture - Final
Blood/Venous Strep mitis/oralis
Gram Stain - Final
05/30/25 20:30 Influenza Types A & B (SIMONA) - Final
Nasal Swab Negative for Influenza A & B, NAAT
Negative results must be combined with clinical observations
and patient history.
Nucleic Acid Amplification test (NAAT)performed on the
[employer] platform.
05/31/25 06:35 Meningitis/Encephalitis Panel (PCR) - Final
Csf
05/31/25 01:54 Respiratory Syncytial Virus Ag - Final
Nasal Swab Negative for Respiratory Syncytial Virus.
A false negative result may be obtained with a specimen
collected early in the acute phase. If symptoms persist, a
new specimen should be tested.
DONNY:
SUMMARY
1. Normal left ventricular size, wall thickness and systolic function. Estimated LVEF 60-65%.
2. There is thickening of the anterior and posterior leaflets of the mitral valve. There is a mobile, pedunculated ecodensity at P2 (image 13), with prolapse. The globular portion measures 5mm x 5 mm, with a 5 mm stalk. In setting of bacteremia,
this is concerning for vegetation. Moderate/severe, highly eccentric mitral valve regurgitation. No mitral stenosis.
3. Trace aortic regurgitation seen.
4. Mild/moderate tricuspid regurgitation.
E on 06/02/25
-
05/30/25 CXR: There is no acute cardiopulmonary disease
--- NOTE | 2025-06-05 14:59 | W.DCSUMMARY ---
Discharge Summary
Discharge Data
Date of Admission: 05/31/25
Date of Discharge: 06/05/25
-
Pending Results: No
Hospital Course
64yo F with PMHx of anxiety, R rotator cuff and biceps tear s/p repair in October 2024 came with 1 week of fevers and headaches, started as sharp, stabing pain in R occipital area, now progressed to affect the back of the head. No visual symptoms,
paresthesia or weakness reported. No sick contacts, no recent travel and no animal bytes. Patient had some GI symptoms at the beginning, now subsided. Also febrile. LP in ED showed granulocytic leukocytosis with elevated protein concerning for
bacterial streptococcal meningitis with Strep. mitis bacteremia, subsequently found acute bacterial endocarditis with vegetations on MV planned for surgical mgmt in 4 weeks with CTS. On Abx as per ID: Ceftriaxone 2g q12h for 14 days (through
06/13/25), then 2g daily for 14 more days (through 06/29/25) CM arranged home infusions that scheduled to start at noon on 06/06/25, therefore planned to be d/c in AM on 06/06/25 as patient will need Rocephin dose late venting on 06/05/25.
HCTZ stopped since patient arrived with JANUSZ, furthere adjustment as per family doctor. Medically stable to be d/c home after home infusion setup confirmation by CM
I have spent at least 36min reviewing chart, test results, communication with consultants, bedside and providing direct patient care
Patietn was managed for:
#Acute meningitis/encephalitis
#Bacteremia 2/2 acute bacterial endocarditis
#Systolic murmur
#Myxomatous mitral valve leaflets with prolapse
#Small mobile echodensity associated with posterior leaflet
#Mild alk.phos elevation
#Vaginal candidiasis
#Mild hyponatremia
#JANUSZ
#PETE
#Constipation
#Mild LDH elevation
#Anxiety d/o
Discharge Plan
-
Blood Work: Weekly ESR/CRP
Others Tests: Please obtain Transthoracic Echocardiogram prior to seeing Dr. Chirag Brambila on 06/30/24.
- Please go to the registration desk at the entrance of [facility] to check-in.
- Echocardiogram will be ordered to be obtained.
Referrals:
Laly Johns CRNP [Specified Professional Personl, Cardiology] - 07/25/25 8:40 am
Chirag Brambila MD [Active, Cardiac Surgery] - 06/30/25 9:30 am
Referral Note: To discuss Mitral Valve intervention following recent mitral valve endocarditis.
Please obtain Echocardiogram prior to your appointment.
UNKNOWN - PT NOT,INTERVIEWE [Family Provider]
Additional Discharge Medication Instructions: Ceftriaxone 2g q12h for 14 days (through 06/13/25), then 2g daily for 14 more days (through 06/29/25)
Prescriptions:
New
ceftriaxone 2 gram Recon Soln
2,000 mg IV Q12H Qty: 0 0RF
Lactobac/Bifidobac [Visbiome]
1 cap PO DAILY Qty: 30 0RF
losartan 50 mg tablet
50 mg PO DAILY Qty: 30 0RF
Continued
buspirone [BuSpar] 15 mg Tablet
15 mg PO BID
Discontinued
ibuprofen [Advil] 200 mg Tablet
600 mg PO Q6HPRN PRN (Reason: mild pain)
losartan-hydrochlorothiazide 50-12.5 mg Tablet
1 tab PO DAILY
Discharge Date and Time
Print Language: [place]
--- NOTE | 2025-06-05 15:12 | CM ---
CM reviewed chart, care ongoing.
Plan for [facility] to come to hospital tomorrow, 06/06 for bedside teaching with patient/.
CM will continue to follow.
Plan; [facility] teaching tomorrow, 06/06, then d/c home
[2025-06-05 15:14] VITALS: BP 140/79
[2025-06-05] MEDS: COZAAR 50 MG PO (15:42)
[2025-06-05 22:43] VITALS: BP 131/72
[2025-06-06 08:08] VITALS: BP 141/82
[2025-06-06] MEDS: VISBIOME 1 CAP PO (08:18)
[2025-06-06] MEDS: TYLENOL 650 MG PO (08:18)
[2025-06-06] MEDS: PROTONIX 40 MG PO (08:19)
[2025-06-06] MEDS: BUSPAR 15 MG PO (08:19)
[2025-06-06] MEDS: COZAAR 50 MG PO (08:19)
[2025-06-06] MEDS: HEPARIN 5000 UNITS SC (08:20)
[2025-06-06] MEDS: ROCEPHIN 2000 MG IV (08:21)
[2025-06-06] MEDS: STERILE WATER FOR INJECTION 20 ML IV (08:21)
--- NOTE | 2025-06-06 10:39 | W.PN.HOSP.TC ---
Today's Communication/Plan
-
monitor vitals
see plan
CM texted to make sure home infusion set up
cw abx
dc today
time of discharge 38 minutes
Assessment / Plan
Assessment / Plan
64yo F with PMHx of anxiety, R rotator cuff and biceps tear s/p repair in October 2024 came with 1 week of fevers and headaches, started as sharp, stabing pain in R occipital area, now progressed to affect the back of the head. No visual symptoms,
paresthesia or weakness reported. No sick contacts, no recent travel and no animal bytes. Patient had some GI symptoms at the beginning, now subsided. Also febrile. LP in ED showed granulocytic leukocytosis with elevated protein concerning for
bacterial streptococcal meningitis with Strep. mitis bacteremia, subsequently found acute bacterial endocarditis with vegetations on MV planned for surgical mgmt in 4 weeks with CTS. On Abx as per ID: Ceftriaxone 2g q12h for 14 days (through
06/13/25), then 2g daily for 14 more days (through 06/29/25) CM arranged home infusions that scheduled to start at noon on 06/06/25, therefore planned to be d/c in AM on 06/06/25 as patient will need Rocephin dose late venting on 06/05/25.
General: No Apparent Distress
HEENT: Normocephalic
Cardiac: Regular Rhythm and Murmur
GI: Soft, Nontender and Nondistended
Musculoskeletal: No Clubbing, No Cyanosis and No Edema
Neuro: Awake, Alert, Oriented and AO x 3
A/P:
#Acute meningitis/encephalitis
#Bacteremia 2/2 acute bacterial endocarditis
Bcx with Strep. mitis
repeat Bcx in 12h NTD
Ceftriaxone 2g q12h for 14 days (through 06/13/25), then 2g daily for 14 more days (through 06/29/25), Vancomycin IV, (Ampicillin, Acyclovir stopped) as per ID consult. home infusion set up
Weekly ESR/CRP
Dexamethasone stopped
Head CT without acute findings
Tylenol
Meningitis/Encephalitis PCR panel neg
Lyme pending
ordered Add-on for CSF cultures -remains neg
Mononucleosis test positive
Eventual PICC and home infusions
#Systolic murmur
#Myxomatous mitral valve leaflets with prolapse
#Small mobile echodensity associated with posterior leaflet
Cardio consult
DONNY: confirmed vegetation on MV, planned for eventual intervention by CTS after treating bacteremia x4 weeks. normal LV function and size, EF 60-65%, MV with thickening of anterior and posterior leaflets and mobile, pedunculated echodensity at P2
(image 13), with prolapse, globular portion measured 5mm x 5mm with 5mm stalk, moderate/severe MR and no MS, normal left atrium size, trace AI, and mild/moderate TR
#Mild alk.phos elevation
Improving so no need in additional imaging for now
follow LFT
no RUQ pain reported
#Vaginal candidiasis
Fluconazole one dose on 06/05/25
#Mild hyponatremia
IVF to be stopped
follow BMP
#JANUSZ
resolved on IVF
most likely dehydration
IVF
follow Cr
#PETE
Iron IV
Outpatient colonoscopy advised - patient had last 2 years ago with - encouraged to discuss as outpatient
PPI
No overt bleeding abd brown stool
FOBT neg
#Constipation
resolved on 06/03/25
#Mild LDH elevation
no concern for hemolysis - most likely acute disease related
#Anxiety d/o
cont home meds
DVT ppx hep
Full code
Anticipated Discharge: Today
Subjective/Interval History
-
Date of Service: June 06, 2025
denies pain
Objective Data
-
Vital Signs:
Vital Signs
Temp Pulse Resp BP Pulse Ox
98.6 F 82 12 141/82 99
06/06/25 08:08 06/06/25 08:08 06/06/25 08:08 06/06/25 08:08 06/06/25 08:08
I&O
06/05/25 06/06/25 06/07/25
06:59 06:59 06:59
Intake Total 480 / 480
Balance 480 / 480
[2025-06-06 11:13] VITALS: BP 124/66
--- NOTE | 2025-06-06 11:24 | CM ---
Confirmed w/ Felicity/[facility] bedside teaching today at noon, patient was confused and thought she was told teaching would be at her home.
Per Felicity, abx delivery isn't scheduled until later tonight and confirmed discussing w/ patient on Friday that teaching at bedside will occur at bedside today.
IMM verbally reviewed, copy provided, copy on chart
Plan: Home w/ [facility]
--- NOTE | 2025-06-06 11:57 | W.PN.ID1 ---
Date of Service
Date of Service: June 06, 2025
Today's Communication
Continue ceftriaxone 2g IV q12 through 06/13/25 (for meningitis dose), then ceftriaxone 2g IV q24 through 06/29/2025
Assessment / Plan
# Streptococcus mitis/oralis bacteremia (2 of 2 sets)
. Per pt, bleeds easily when she flosses due to hx bleeding order (?thalassemia associated with Ashkenazi Jews)
# Bacterial meningitis
# Infective endocarditis [place] MV with severe mitral regurgitation
# Fever resolved
# Acute leukocytosis resolved
# JANUSZ -resolved
# hx Mitral valve prolapse
- CSF 6,854 WBC, 250 RBC, 89% polys, CSF/serum glucose ratio <0.40, protein>600 consistent with bacterial meningitis
- Meningitis-encephalitis PCR panel negative
- CSF gram stain no org; cx neg
- repeat bcx's neg to date
- DONNY 5mm mobile, pedunculated echodensity MV with moderate to severe regurgitation.
- Per cardiothoracic, no urgent need for surgical intervention.
- Continue ceftriaxone 2g IV q12 through 06/13/25 (for meningitis dose), then ceftriaxone 2g IV q24 through 06/29/2025 for remaining 2 weeks (4 weeks total course for Strep endocarditis).
- Follow weekly CBC, CMP
- Follow up with me in 3 weeks.
Chief Complaint
-: Other (EVGA)
Subjective / Review of Systems
Going home today.
Vital Signs / Physical Exam
Vital Signs
Vital Signs
Temp Pulse Resp BP Pulse Ox
98.7 F 82 16 124/66 99
06/06/25 11:13 06/06/25 11:13 06/06/25 11:13 06/06/25 11:13 06/06/25 11:13
Physical Exam
Constitutional: No Acute Distress
Cardiovascular: Regular Rate, S1/S2 and Murmur (LLSB)
Pulmonary: Clear
Gastrointestinal: Soft, Non Tender, Non Distended and Normal Bowel Sounds
Neurological: AO x 3; Negative Meningeal Signs
Lines: Other (RUE midline intact)
Objective Data
Lab Data
Lab Results
06/04/25 04:19
06/04/25 04:19
Estimated Creat Clear 63 ml/min 06/04/25 04:19
Lactic Acid 0.6 mmol/L (0.7-2.0) L 05/30/25 20:30
Total Bilirubin 0.2 mg/dl (0.2-1.3) 06/03/25 07:47
AST 18 U/L (14-36) 06/03/25 07:47
ALT 22 U/L (0-35) 06/03/25 07:47
Alkaline Phosphatase 97 U/L (38-126) 06/03/25 07:47
Most recent labs reviewed.
Micro Results:
06/01/25 10:24 Blood Culture - Final
Blood/Venous No Growth - Final Report
06/01/25 09:13 Blood Culture - Final
Blood/Venous No Growth - Final Report
05/31/25 06:42 CSF Culture - Final
Csf No Growth After 5 Days - Final Report
Gram Stain - Final
05/31/25 01:54 Blood Culture - Final
Blood/Venous Strep mitis/oralis
Gram Stain - Final
05/30/25 20:30 Blood Culture - Final
Blood/Venous Strep mitis/oralis
Gram Stain - Final
05/30/25 20:30 Influenza Types A & B (SIMONA) - Final
Nasal Swab Negative for Influenza A & B, NAAT
Negative results must be combined with clinical observations
and patient history.
Nucleic Acid Amplification test (NAAT)performed on the
[employer] platform.
05/31/25 06:35 Meningitis/Encephalitis Panel (PCR) - Final
Csf
05/31/25 01:54 Respiratory Syncytial Virus Ag - Final
Nasal Swab Negative for Respiratory Syncytial Virus.
A false negative result may be obtained with a specimen
collected early in the acute phase. If symptoms persist, a
new specimen should be tested.
DONNY:
SUMMARY
1. Normal left ventricular size, wall thickness and systolic function. Estimated LVEF 60-65%.
2. There is thickening of the anterior and posterior leaflets of the mitral valve. There is a mobile, pedunculated ecodensity at P2 (image 13), with prolapse. The globular portion measures 5mm x 5 mm, with a 5 mm stalk. In setting of bacteremia,
this is concerning for vegetation. Moderate/severe, highly eccentric mitral valve regurgitation. No mitral stenosis.
3. Trace aortic regurgitation seen.
4. Mild/moderate tricuspid regurgitation.
E on 06/02/25
-
05/30/25 CXR: There is no acute cardiopulmonary disease
--- NOTE | 2025-06-06 16:30 | W.DCSUMMARY ---
Discharge Summary
Discharge Data
Date of Admission: 05/31/25
Date of Discharge: 06/06/25
-
Pending Results: No
Hospital Course
64yo F with PMHx of anxiety, R rotator cuff and biceps tear s/p repair in October 2024 came with 1 week of fevers and headaches, started as sharp, stabing pain in R occipital area, now progressed to affect the back of the head. No visual symptoms,
paresthesia or weakness reported. No sick contacts, no recent travel and no animal bytes. Patient had some GI symptoms at the beginning, now subsided. Also febrile. LP in ED showed granulocytic leukocytosis with elevated protein concerning for
bacterial streptococcal meningitis with Strep. mitis bacteremia, subsequently found acute bacterial endocarditis with vegetations on MV planned for surgical mgmt in 4 weeks with CTS. On Abx as per ID: Ceftriaxone 2g q12h for 14 days (through
06/13/25), then 2g daily for 14 more days (through 06/29/25) CM arranged home infusions that scheduled to start at noon on 06/06/25, therefore planned to be d/c in AM on 06/06/25 as patient will need Rocephin dose late venting on 06/05/25.
HCTZ stopped since patient arrived with JANUSZ, further adjustment as per family doctor. Medically stable to be d/c home after home infusion setup confirmation by CM
Patietn was managed for:
#Acute meningitis/encephalitis
#Bacteremia 2/2 acute bacterial endocarditis
#Systolic murmur
#Myxomatous mitral valve leaflets with prolapse
#Small mobile echodensity associated with posterior leaflet
#Mild alk.phos elevation
#Vaginal candidiasis
#Mild hyponatremia
#JANUSZ
#PETE
#Constipation
#Mild LDH elevation
#Anxiety d/o
Discharge Plan
-
Patient Disposition: Home (Routine Discharge)
Discharge Diagnosis/Procedures: meningitis, acute endocarditis
Diet: Regular
Activity: As tolerated
Driving Restrictions: As prior to admission
Blood Work: Weekly ESR/CRP
Others Tests: Please obtain Transthoracic Echocardiogram prior to seeing Dr. Chirag Brambila on 06/30/24.
- Please go to the registration desk at the entrance of [facility] to check-in.
- Echocardiogram will be ordered to be obtained.
Referrals:
aLly Johns CRNP [Specified Professional Personl, Cardiology] - 07/25/25 8:40 am
Chirag Brambila MD [Active, Cardiac Surgery] - 06/30/25 9:30 am
Referral Note: To discuss Mitral Valve intervention following recent mitral valve endocarditis.
Please obtain Echocardiogram prior to your appointment.
UNKNOWN - PT NOT,INTERVIEWE [Family Provider]
Shantell Pak MD [Active, Infectious Diseases] - in two to three weeks
Additional Discharge Medication Instructions: Ceftriaxone 2g q12h for 14 days (through 06/13/25), then 2g daily for 14 more days (through 06/29/25)
Prescriptions:
New
losartan 50 mg tablet
50 mg PO DAILY Qty: 30 0RF
ceftriaxone 2 gram Recon Soln
2,000 mg IV Q12H Qty: 0 0RF
Lactobac/Bifidobac [Visbiome]
1 cap PO DAILY Qty: 30 0RF
pantoprazole 40 mg Tablet,Delayed Release (Dr/Ec)
40 mg PO DAILY Qty: 30 0RF
Continued
buspirone 15 mg Tablet
15 mg PO BID
Discontinued
ibuprofen [Advil] 200 mg Tablet
600 mg PO Q6HPRN PRN (Reason: mild pain)
losartan-hydrochlorothiazide 50-12.5 mg Tablet
1 tab PO DAILY
Discharge Orders:
Discharge Patient (As Directed); Ordered 06/06/25
Ordered By: Gómez Bryson
Discharge Date and Time
Discharge Date/Time: 06/06/25 13:09
Print Language: BANGLADES[place]
== END 2025-06-06 13:09 | disposition home or self-care (01) | DRG 94 ==
LOC: 4 WEST ACU 09:29
PROVIDERS: Emergency Medicine; Physician Assistant; Student in an Organized Health Care Education/Training Program; ADMITTING PHYSICIAN Internal Medicine; ATTENDING PHYSICIAN Internal Medicine; CONSULT PHYSICIAN Internal Medicine; CONSULT PHYSICIAN Internal Medicine Infectious Disease; CONSULT PHYSICIAN Thoracic Surgery (Cardiothoracic Vascular Surgery); EMERGENCY PHYSICIAN Emergency Medicine
PROC: 009U3ZX Drainage of Spinal Canal, Percutaneous Approach, Diagnostic (ICD-10-PCS; 2025-05-30)
PROC: B24BZZ4 Ultrasonography of Heart with Aorta, Transesophageal (ICD-10-PCS; 2025-06-02)
DX: G00.2 Streptococcal meningitis (principal); G04.90 Encephalitis and encephalomyelitis, unspecified; I33.0 Acute and subacute infective endocarditis; E87.1 Hypo-osmolality and hyponatremia; N17.9 Acute kidney failure, unspecified; D68.9 Coagulation defect, unspecified; R78.81 Bacteremia; I10 Essential (primary) hypertension; K58.9 Irritable bowel syndrome, unspecified; F41.9 Anxiety disorder, unspecified; D50.9 Iron deficiency anemia, unspecified; B95.4 Other streptococcus as the cause of diseases classified elsewhere; I27.20 Pulmonary hypertension, unspecified; I08.1 Rheumatic disorders of both mitral and tricuspid valves; F32.A Depression, unspecified; B27.90 Infectious mononucleosis, unspecified without complication; D56.3 Thalassemia minor; R74.02 Elevation of levels of lactic acid dehydrogenase [LDH]; E86.0 Dehydration; K21.9 Gastro-esophageal reflux disease without esophagitis; B37.31 Acute candidiasis of vulva and vagina; Z11.52 Encounter for screening for COVID-19; Z79.899 Other long term (current) drug therapy; Z80.3 Family history of malignant neoplasm of breast
CPT/HCPCS: 70450; 71046; 80048; 80053; 80202; 81003; 81015; 82607; 82728; 82746; 82945; 83540; 83550; 83605; 83615; 84157; 85025; 85045; 86308; 87015; 87040; 87070; 87077; 87154; 87186; 87205; 87476; 87483; 87502; 87807; 87811; 89051; 92960; 93306; 93312; 93320; 93325; J2916

== ENCOUNTER → 2025-06-20 14:18 | Outpatient (REF) | payer MEDICARE, SELFPAY | LOC: HWRCS 14:18 | PROVIDERS: ATTENDING PHYSICIAN Thoracic Surgery (Cardiothoracic Vascular Surgery) | DX: I34.1 Nonrheumatic mitral (valve) prolapse (principal); I38 Endocarditis, valve unspecified | CPT/HCPCS: 93306 ==